=== PATIENT | female | born 1990 | race Caucasian/White ===

== ENCOUNTER 2024-06-01 02:54 | Inpatient (IN) | payer BC, SELFPAY ==
[2024-06-01] VITALS (96 sets, daily range): BP systolic 90–159; BP diastolic 50–91; PULSE 59–111; RESP 16–20; TEMP 36.5–37.5; O2SAT 98–100; BMI 29.0
[2024-06-01 02:42] LABS: Amnisure Rom* POSITIVE
[2024-06-01] MEDS: ACETAMINOPHEN 500 MG TABLET 1000 MG PO ×3 (04:39→19:17)
[2024-06-01] MEDS: ONDANSETRON ODT 4 MG TAB PO (04:42)
[2024-06-01] MEDS: LACTATED RINGERS 1000 ML 1,000 ML 1100 ML IV (05:15)
[2024-06-01 05:26] LABS: Basophils Absolute Auto 0.03 K/uL (0.00-0.30); Basophils Percent Auto 0.3 % (0.0-3.0); Eosinophils Absolute Auto 0.14 K/uL (0.00-0.50); Eosinophils Percent Auto 1.4 % (0.0-7.0); Hematocrit* 36.3 % (33.0-51.0); Hemoglobin* 12.5 gm/dL (12.0-16.0); Immature Granulocytes Abs Auto 0.04 K/uL (0.00-0.30); Immature Granulocytes Pct Auto 0.4 %; Lymphocytes Percent Auto 17.9 % (20-44); Mean Corpuscular HGB Conc 34 gm/dL (32-36); Mean Corpuscular Hemoglobin 32 pg (26-34); Mean Corpuscular Volume 93 fL (80-100); Monocytes Percent Auto 6.7 % (0.0-11.0); Neutrophils Percent Auto 73.3 % (42.0-72.0); Platelet Count* 144 K/uL (140-440); RDW Coefficient of Variation % 12.9 % (11.5-15.5); Red Blood Count* 3.89 m/uL (4.00-5.20); White Blood Count* 10.33 K/uL (4.50-11.00)
[2024-06-01 05:30] LABS: Slide Review Reflex No
[2024-06-01] MEDS: BUPIVACAINE 0.25% PF 10 ML 10 ML ML EPIDURAL (05:42)
[2024-06-01] MEDS: ROPIVACAINE 0.2% 100 ml 100 ML 12 MG EPIDURAL (05:43)
--- NOTE | 2024-06-01 05:53 | PM.ANBPRC ---
PFSH PFS Social History Smoking Status: Never smoker Meds Home Medications and Allergies Allergies Allergy/AdvReac Type Severity Reaction Status Date / Time No Known Drug Allergies Allergy Verified 06/01/24 01:59 Results Labs Labs: Laboratory Results - last 24 hr 06/01/24 06/01/24 01:58 05:20 WBC 10.33 RBC 3.89 L Hgb 12.5 Hct 36.3 MCV 93 MCH 32 MCHC 34 RDW Coeff of Tracey 12.9 Plt Count 144 Neut % (Auto) 73.3 H Lymph % (Auto) 17.9 L Hartley % (Auto) 6.7 Eos % (Auto) 1.4 Baso % (Auto) 0.3 Neut # (Auto) 7.60 H Lymph # (Auto) 1.80 Hartley # (Auto) 0.70 Eos # (Auto) 0.14 Baso # (Auto) 0.03 Abs Immat Gran (auto) 0.04 Imm/Tot Granulo (auto) 0.4 Membrane Rupture POSITIVE Vital Signs Vital Signs: Last Vital Signs Temp 98 F 06/01/24 03:32 Pulse 68 06/01/24 05:51 Resp 16 06/01/24 02:03 BP 122/70 06/01/24 05:51 Pulse Ox 100 06/01/24 05:50 Anesthesia Procedures Epidural Insertion Patient Location: OB Start Time: 05:00 Stop Time: 05:50 Start Date: 06/01/24 Stop Date: 06/01/24 Reason for Block: procedure for pain Patient Position: sitting Performed By: Lex Mojica Preanesthetic Checklist: IV checked, risks and benefits discussed, surgical consent, monitors and equipment checked, pre-op evaluation, timeout performed and anesthesia consent Prep: chlorhexidine gluconate Monitoring: blood pressure monitoring, continuous pulse oximetry and heart rate Approach: midline Vertebral Space: lumbar (1-5) Epidural Technique: BRENNAN saline Needle Type: Tuohy needle Injection Technique: continuous catheter Needle gauge: 17 Needle Length (cm): 10 cm Needle Insertion Depth (cm): 6 Catheter Gauge: 19 Catheter Type: multi-orifice Catheter at skin depth (cm): 12 Test Dose Result: negative and lidocaine 1.5% with epinephrine 1 to 200,000
[2024-06-01] MEDS: LACTATED RINGERS 1000 ML 1,000 ML 125 ML IV (06:13)
[2024-06-01 06:19] LABS: Alanine Aminotransferase* 65 U/L (4-35); Aspartate Amino Transferase* 53 U/L (12-35); Blood Urea Nitrogen* 12 mg/dL (5-24); Creatinine* 0.6 mg/dL (0.5-1.5); Estimated Glomerular Filt Rate 122 ml/min
[2024-06-01] MEDS: ONDANSETRON 2 MG/ML inj 4 MG IV (07:22)
--- NOTE | 2024-06-01 07:32 | PM.OBHPLI ---
OB - H&P: HPI Labor/Induction History of Present Illness Time Seen by Provider: 07:32 Date Seen: 06/01/24 Chief Complaint: The patient is a 34 year old 1 para 0 at 39+4 weeks gestation by LMP, who presents with SROM. Chief complaint: Maternity : 1 Para: 0 Narrative: Maggie Rehman is a 34 year old female at 39+4 weeks by LMP c/w 10 week US who presents with SROM. She reports a gush of clear fluid at home around 0000, contractions started at 0100. Presented to L&D 0230, found to be 2.5/80/-3, zoran regularly. Contractions became more intense around 0430. Patient requested epidural, placed 0530. Now feeling nauseous, otherwise comfortable. 8/100/0 at 0715. Blood pressures elevated to max of 159/90 upon presentation. Have since been variable, currently 108/63 after epidural. Pre-E labs significant for AST 53, ALT 65. Pr/Cr pending. LE edema; no ESPINOZA, visual change or RUQ pain. complicated by R anterior mid-uterine fibroid, 9 cm at 36 week US. EFW 54th percentile. History of Present Dating criteria: based on LMP care: good care Abnormal ultrasound findings: - 10 week dating US c/w LMP - 20 week survey normal, EFW 49th percentile, R uterine fibroid 7 cm - 32 week growth EFW 14th percentile, R uterine fibroid 9 cm - 36 week growth EFW 54the percentile, R uterine fibroid 9 cm complications: gestational hypertension (New diagnosis in labor) Medical complications: none Labs Blood type: AB (+) positive Rubella: immune RPR/VDLR: nonreactive GBS status: negative HBsAG: negative Narrative: HIV neg GC/chlam neg GCT 117 Review of Systems Status of ROS: Reports: 10 or more systems reviewed and unremarkable except as noted in History and below Meds Home Medications and Allergies Home Medications ?Medication ?Instructions ?Recorded ?Confirmed ?Type No Known Home Medications 06/01/24 06/01/24 History Allergies Allergy/AdvReac Type Severity Reaction Status Date / Time No Known Drug Allergies Allergy Verified 06/01/24 01:59 OB - H&P: Exam Physical Exam: Vital signs: Temp Pulse Resp BP Pulse Ox 97.7 F 68 16 107/57 L 99 04/04/25 07:26 06/01/24 07:21 06/01/24 07:26 06/01/24 07:21 06/01/24 06:10 Narrative: General appearance: Well-appearing adult female. Alert, oriented and appropriate. Sitting up in hospital bed. HEENT: EOMI, no conjunctival injection or discharge. MMM. Neck: Supple. CV: RRR, no rubs, murmurs or extra heart sounds. Pulm: CTAB, no wheezes, rales or rhonchi. Abdomen: Soft, gravid. MSK: Moving all extremities. Ext: Warm and well-perfused. 1+ edema over the dorsal feet, trace in ankles and lower extremities Skin: No rashes appreciated over exposed skin. Neuro: Grossly normal strength and sensation. No focal deficits. Psych: Normal affect. 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 SROM at 0000 on 06/01 for clear fluid. GBS negative. Status: Acute Plan: - Epidural in place for pain control, patient confortable - GBS negative - FHT reassuring, category II - Expectant management (2) SROM (spontaneous rupture of membranes): Status: Acute (3) Gestational hypertension: Problem details: Elevated BPs upon presentation to L&D, non-severe range, 4 hours apart. LFTs elevated, not >2x ULN Status: Acute Plan: - Pr/Cr ratio pending - Continue to monitor blood pressures per protocol - Repeat labs in 6 hours - If meeting criteria for severe features, initiate IV mag (4) Uterine fibroid during , antepartum: Problem details: Mid right uterine fibroid measuring 9.1 x 8.9 x 3.1 cm at 36 weeks Status: Acute
[2024-06-01] MEDS: CALCIUM CARBONATE 500 MG CHEW PO (08:56)
[2024-06-01 08:57] LABS: Total Protein Urine 26 mg/dL
[2024-06-01] MEDS: PHENYLEPHRINE 100 MCG/ML SYRINGE IVP ×2 (08:57→10:12)
[2024-06-01 08:58] LABS: Protein Creatinine Ratio Urine 0.29 (0-0.19)
[2024-06-01] MEDS: OXYTOCIN 30 unit/500 ML in NS 30 UNIT/500 ML BAG IVPB (09:53)
--- NOTE | 2024-06-01 10:01 | PM.OBPNL ---
Subjective Time Seen by Provider: 10:01 Date Seen: 06/01/24 Narrative: Patient nauseated, but otherwise comfortable with epidural. tracing was showing occasional lates and variables, now resolved following a dose of phenylephrine. Variability also improved. Cervical exam remained 8/100/0 at 0915, so IUPC was placed. Not reading well, and IUPC was replaced. Objective Vital Signs: Last Vital Signs Temp 98.8 F 06/01/24 08:13 Pulse 86 06/01/24 09:48 Resp 16 06/01/24 07:26 BP 100/57 L 06/01/24 09:48 Pulse Ox 99 06/01/24 06:10 Pelvic Exam Dilation (cm): 8 Effacement (%): 100 Station: 0 Contractions Monitor mode: Internal Contraction Frequency: 3-4 mins Assessment Assessment: active labor Station: 0 Amniotic Membrane Status: SROM Status: Category ll Heart Rate Baseline: 140 Prison Variability: Moderate (6-25) Monitor Accelerations: Present Monitor Decelerations: Variable Plan Plan: - IUPC now in place, functioning well - Contractions appear inadequate. Pitocin started, will titrate as needed - FHT category II, decels improved following phenylephrine - Anticipate vaginal delivery
--- NOTE | 2024-06-01 11:33 | PM.OBPNL ---
Subjective Time Seen by Provider: 11:33 Date Seen: 06/01/24 Narrative: Intermittent late and variable decelerations recurred, again improved with phenylephrine at 1012. Patient found to be complete/100/+2 at 1100. Began pushing with good maternal effort. 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
[2024-06-01] MEDS: LIDOCAINE 1 % PF 30 ML INJECTION (14:06)
[2024-06-01] MEDS: ROPIVACAINE 0.2% 100 ml 100 ML 10 MG EPIDURAL (14:08)
--- NOTE | 2024-06-01 14:53 | W.PM.VAGDE_ITS ---
OB Procedure Vag Delivery Mother Details Mother Details: The patient is a 34 year-old, 1, Para 0, admitted on 06/01/24 at 39+4 Days gestation for SROM at home for clear fluid, large gush at 0000. Contractions started 0100. Patient arrived at the center 0230, found to be 2.5/80/-3. Multiple elevated blood pressures in the non-severe range, meeting criteria for gestational hypertension. LFTs elevated, not >2x ULN. Contractions became more intense; patient requested epidural for pain control with good effect. Periods of intermittent late and variable decelerations improved with phenylephrine. Found to be 8 cm after epidural 0615. 0915 remained 8 cm and IUPC was placed. Contractions inadequate, and IV pitocin initiated. She progressed to complete at 1102. Began pushing 1106. Delivered a viable male infant over an intact perineum at 1357. was placed on maternal chest. Cord was clamped at cut after 1 minute. APGARs 8 and 9. Placenta delivered spontaneously at 1402. Third degree perineal laceration was repaired by OB nutrition director, Dr. Garnica; see her note for repair details. QBL 740. and mother are resting comfortably. : 1 Para: 0 Weeks Gestation: 39.4 Admission Date: 06/01/24 Additional Details Amniotic Membrane Status: SROM Amniotic Membrane Rupture Date: 06/01/24 Amniotic Membrane Rupture Time: 00:00 Amniotic Membrane Fluid Description: Clear Analgesia/Anesthesia Type: Epidural Waterbirth: No Pitcoin: Yes Intrapartal Events: Labor Augmentation Delivery augmentation: pitocin Labor Onset: 04:30 Complete: 11:02 Pushin:06 Heart: heart tones during second stage were category II. Variable decelerations with pushing, rapid recovery back to baseline. Delivery Details Delivery Date: 06/01/24 Delivery Time: 13:57 Route of delivery: Gender: Male Infant Viability: Alive; Heart Rate Present Position at Delivery: OA Delivery Details: Delivered via spontaneous vaginal delivery. Infant was placed on maternal abdomen.? Cord was clamped and cut after a 30-60 second delay. Nose and mouth were bulb suctioned.? weight pending. 1 Minute Interval Total Score: 8 5 Minute Interval Total Score: 9 Additional Details Shoulder Dystocia: No Placenta Delivery Time: 14:02 Placental Delivery Description: Spontaneous Delivery repair: Vicryl Procedure Done: Global Blood Loss: 740 Laceration: Periurethral - 3rd Degree (Repaired by OB nutrition director, Dr. Garnica) Episiotomy Description: None Blood Loss Measurement Type: QBL Bakri Used: No Sponge/Need Count Correct: Yes Cord Vessel Description: 3 Vessels Event Summary Status: Mother and infant were stable after delivery. Disposition: floor
[2024-06-01] MEDS: IBUPROFEN 600 MG TABLET PO ×2 (15:05→21:02)
--- NOTE | 2024-06-01 15:08 | P.OBCN_ITS ---
OB - CN: HPI Date of Consult Time Seen by Provider: 15:00 Date Seen: 06/02/24 Patient: Audrey Patient Consult date: 06/02/24 Requesting Physician: Татьяна Quiroz DO Primary Care Provider: Jarvis Saunders MD Consult Narrative Narrative: The patient is a 34 year old G 1 now P1 at 39.4 weeks gestation that was admitted to the Center on 06/01/24 for SROM. She had a . Perineum inspected and a 3B laceration was noted. The patient was given a dose of 2g of cefoxitin, rectal exam performed to confirm tear and internal anal sphincter identified and intact with >50% avulsion of the external anal sphincter. Operators? gloves changed and attention was then turned to the anal sphincter. Sandy clamps were placed on the disrupted edges, and 0 vicryl used to reapproximate the sphincter in an interrupted fashion with four stitches. Before these were tied down a rectal exam confirmed no retained sutures in the rectum and good sphincter tone with tightening of the sutures. Additional deep stitches were placed proximal to the sphincter to provide for a more substantial perineal body. The remainder of the tear was repaired as a typical 2nd degree laceration with a running 2-0 vicryl stitch. There was no involvement of the anal mucosa. The skin was closed with 3-0 vicryl. A rectal exam was performed at the beginning and end of repair and was without e/o suture through rectum or sphincter injury. Following the repair, she was counseled on the procedure and precautions for return to care. Strong bowel regimen instructions reviewed. Baby inspected. Mom and baby doing well in recovery. QBL: 400 cc prior to repair. 740 cc total Postoperative care recommendations - Bowel regimen: Miralax QD, Senna BID, Simethicone Q4H PRN. Continue bowel regimen for 6-8 weeks depending on level of constipation. Avoid straining, constipation or diarrhea. Avoid sitting on the toilet for more than 10 mins. - Wound care: recommend rinsing with warm water using carlos-care bottle and wiping with unscented wet wipes/clean towel after voids and bowel movements. Pat clean and dry. Do not rub. Avoid using toilet paper that can break off and stick to wound. - Pain: 600mg of Ibuprofen Q6H PRN, 1000 mg of acetaminophen Q6H PRN, oxycodone 5 mg Q6H PRN, Dermo Plast spray PRN, perineal ice pack PRN. Sitz baths BID x 2 weeks, then PRN. History of Present complications: gestational hypertension (New diagnosis in labor) History History 1 Elective abortions Para 0 Spontaneous abortions Hx # Term Pregnancies Ectopic pregnancies Hx # Pregnancies Multiple births Number of Living Children 0 Labs Blood type: AB (+) positive Rubella: immune RPR/VDLR: nonreactive GBS status: negative HBsAG: negative OB Labs: Lab Assessment Start: 06/01/24 02:55 Freq: ONCE Status: Complete Protocol: PC.OBGBS Activity Type Activity Date Activity User E-sign Co-sign Detail Recorded Client Recorded Date Recorded By Document 06/01/24 03:22 DESSELLBRYANM [id number] 06/01/24 03:22 DESSELLIEM 06/01/24 03:22 Lab Assessment GBS Status negative GBS Additional Criteria None No Treatment Needed OK Are Labs Available Yes Maternal Blood Type AB Maternal RH Factor Positive Evaluate Maternal Rubella Immune Status Immune Hepatitis B Surface Antigen Negative Maternal HIV Status Negative Maternal Syphillis (RPR) Status Negative PFSH PFSH Social History What is your current living situation?: I presently have a place to live Problems where you live: no known problems In the past 12 months, utilities in danger of being shut off: no In past 12 months, lack of transportation kept you from medical appts, meetings, work, or getting things needed for daily living: no In the past 12 mos, have been you worried that your food would run out before you had money to buy more?: never true In the past 12 mos, the food you bought just didn't last and you didn't have money to buy more?: never true Smoking Status: Never smoker How often does anyone, including family, friends and others, physically hurt you : never How often does anyone, including family, friends and others, insult or talk down to you: never How often does anyone, including family, friends and others, threaten you with harm: never How often does anyone, including family, friends and others, scream or curse at you: never Meds Home Medications and Allergies Home Medications ?Medication ?Instructions ?Recorded ?Confirmed ?Type No Known Home Medications 06/01/24 06/01/24 History Allergies Allergy/AdvReac Type Severity Reaction Status Date / Time No Known Drug Allergies Allergy Verified 06/01/24 01:59 OB - H&P: Exam Physical Exam: Vital signs: Temp Pulse Resp BP Pulse Ox 98.4 F 82 20 113/69 99 06/01/24 13:17 06/01/24 15:03 06/01/24 13:17 06/01/24 15:03 06/01/24 06:10 OB - Results Labs Labs: Short CBC 06/01/24 Range/Units 05:20 WBC 10.33 (4.50-11.00) K/uL Hgb 12.5 (12.0-16.0) gm/dL Hct 36.3 (33.0-51.0) % Plt Count 144 (140-440) K/uL BMP 06/01/24 05:20 BUN 12 Creatinine 0.6 Liver Function 06/01/24 Range/Units 05:20 AST 53 H (12-35) U/L ALT 65 H (4-35) U/L OB - CN: A/P Assessment and Plan (1) Term : Problem details: at 39+4 weeks. SROM at 0000 on 06/01 for clear fluid. GBS negative. Status: Acute (2) SROM (spontaneous rupture of membranes): Status: Acute (3) Gestational hypertension: Problem details: Elevated BPs upon presentation to L&D, non-severe range, 4 hours apart. LFTs elevated, not >2x ULN Status: Acute (4) Uterine fibroid during , antepartum: Problem details: Mid right uterine fibroid measuring 9.1 x 8.9 x 3.1 cm at 36 weeks Status: Acute
[2024-06-01] MEDS: cefOXitin 2 GM in 0.9 % SODIUM CHLORIDE Mini-bag 100 ML IVPB (15:19)
[2024-06-01 16:14] LABS: Hematocrit* 32.2 % (33.0-51.0); Hemoglobin* 10.9 gm/dL (12.0-16.0); Mean Corpuscular HGB Conc 34 gm/dL (32-36); Mean Corpuscular Hemoglobin 32 pg (26-34); Mean Corpuscular Volume 94 fL (80-100); Platelet Count* 127 K/uL (140-440); Red Blood Count* 3.41 m/uL (4.00-5.20); White Blood Count* 15.99 K/uL (4.50-11.00)
[2024-06-01 16:26] LABS: Slide Review Reflex No
[2024-06-01 16:29] LABS: Alanine Aminotransferase* 52 U/L (4-35); Aspartate Amino Transferase* 47 U/L (12-35); Blood Urea Nitrogen* 10 mg/dL (5-24); Creatinine* 0.6 mg/dL (0.5-1.5); Estimated Glomerular Filt Rate 122 ml/min
[2024-06-01] MEDS: SENNOSIDES 1 TAB TABLET PO (21:02)
[2024-06-02 00:19] VITALS: BP 121/71; PULSE 86; RESP 18; TEMP 36.6
[2024-06-02] MEDS: ACETAMINOPHEN 500 MG TABLET 1000 MG PO ×3 (03:15→19:27)
[2024-06-02 03:41] VITALS: BP 120/79; PULSE 76; RESP 22; TEMP 36.8
[2024-06-02] MEDS: IBUPROFEN 600 MG TABLET PO ×3 (06:03→20:47)
[2024-06-02 07:38] LABS: Hemoglobin* 10.2 gm/dL (12.0-16.0); Platelet Count* 119 K/uL (140-440)
[2024-06-02 07:45] VITALS: BP 110/72; PULSE 85; RESP 18; TEMP 36.4; O2SAT 99
[2024-06-02] MEDS: DOCUSATE SODIUM 100 MG CAPSULE PO (08:56)
[2024-06-02] MEDS: SENNOSIDES 1 TAB TABLET PO ×2 (08:56→20:47)
[2024-06-02] MEDS: polyethylene glycoL 3350 17 GM PACK PO (08:57)
[2024-06-02] MEDS: CALCIUM CARBONATE 500 MG CHEW PO (08:57)
--- NOTE | 2024-06-02 10:16 | PM.OBPNVD1 ---
OB - PN:Subj Subjective Date Seen: 06/02/24 Interval history: Vaginal delivery with 3rd degree repair yesterday. Narrative: Doing pretty well . Pain and bleeding are improving. Still having some mild substernal burning with eating and drinking or when she lays down flat. Not with activity or deep breath. Not having headaches or RUQ pain. BP has been normal. Leg swelling is stable. OB - PN: Obj Exam Physical Exam: Vital signs: Temp Pulse Resp BP Pulse Ox O2 Del Method 97.5 F L 85 18 110/72 99 Room Air 06/02/24 07:45 06/02/24 07:45 06/02/24 07:45 06/02/24 07:45 06/02/24 07:45 06/02/24 07:45 Constitutional: Constitutional: no acute distress Routine Chest/Breast/Axilla Exam: Chest wall: Absent tenderness Detailed Chest Wall Exam: Chest wall: Absent crepitus or rib tenderness Routine Respiratory Exam: Respiratory: Present CTA bilaterally; Absent crackles or wheezes Routine Cardiovascular Exam: Cardiovascular: Present RRR, S1 and S2; Absent murmur Routine Abdominal Exam: Abdominal: Absent tenderness Fundus: Present firm Routine Extremities Exam: Extremities: Present pedal edema (1+ nonpitting edema bilaterally); Absent calf tenderness OB - PN: Obj Data Labs Labs: Laboratory Results - last 24 hr 06/01/24 06/02/24 15:46 07:19 WBC 15.99 H RBC 3.41 L Hgb 10.9 L 10.2 L Hct 32.2 L MCV 94 MCH 32 MCHC 34 Plt Count 127 L 119 L BUN 10 Creatinine 0.6 Estimated GFR 122 AST 47 H ALT 52 H OB - PN: A/P Delivery Assessment and Plan (1) Term : Problem details: at 39+4 weeks. SROM at 0000 on 06/01 for clear fluid. GBS negative. Status: Acute Assessment and Plan: Routine cares (2) SROM (spontaneous rupture of membranes): Status: Acute (3) Gestational hypertension: Problem details: Elevated BPs upon presentation to L&D, non-severe range, 4 hours apart. LFTs elevated, not >2x ULN Status: Acute Assessment and Plan: Labs yesterday showed liver enzyme trending down. Platelets down minimally this morning from yesterday but no other symptoms. Bleeding improving. Swelling improving as well. If BP elevated today, will repeat labs. (4) Uterine fibroid during , antepartum: Problem details: Mid right uterine fibroid measuring 9.1 x 8.9 x 3.1 cm at 36 weeks Status: Acute (5) Acid reflux: Status: Acute Assessment and Plan: Not improved with tums. Will trial famotidine. Monitor for worsening or changing symptoms. (6) Third degree perineal laceration: Status: Acute Assessment and Plan: Pain improving. Continue bowel regimen.
[2024-06-02] MEDS: MAG HYDROX/ALUMINUM HYD/SIMETH 30 ML ORAL.SUSP PO (10:26)
[2024-06-02 11:40] VITALS: BP 121/76; PULSE 73; RESP 18; TEMP 36.4; O2SAT 100
[2024-06-02 14:43] LABS: Rapid Plasma Reagin (RPR) Non Reactive (Non Reactive)
[2024-06-02 19:30] VITALS: BP 112/74; PULSE 73; RESP 18; TEMP 36.8
[2024-06-03] MEDS: ACETAMINOPHEN 500 MG TABLET 1000 MG PO ×2 (00:42→06:51)
[2024-06-03 00:44] VITALS: BP 112/73; PULSE 73; RESP 20
[2024-06-03] MEDS: IBUPROFEN 600 MG TABLET PO ×2 (02:29→08:33)
[2024-06-03 03:54] VITALS: BP 129/81; PULSE 73; RESP 20; TEMP 36.4; O2SAT 100
[2024-06-03 06:53] VITALS: BP 121/80
[2024-06-03 08:24] VITALS: BP 116/78; PULSE 73; RESP 18; TEMP 36.6; O2SAT 99
[2024-06-03] MEDS: DOCUSATE SODIUM 100 MG CAPSULE PO (08:33)
[2024-06-03] MEDS: SENNOSIDES 1 TAB TABLET PO (08:33)
[2024-06-03] MEDS: polyethylene glycoL 3350 17 GM PACK PO (08:33)
[2024-06-03] MEDS: MAG HYDROX/ALUMINUM HYD/SIMETH 30 ML ORAL.SUSP PO (09:12)
[2024-06-03 09:16] LABS: Hematocrit* 29.6 % (33.0-51.0); Hemoglobin* 9.8 gm/dL (12.0-16.0); Mean Corpuscular HGB Conc 33 gm/dL (32-36); Mean Corpuscular Hemoglobin 33 pg (26-34); Mean Corpuscular Volume 98 fL (80-100); Platelet Count* 126 K/uL (140-440); Red Blood Count* 3.02 m/uL (4.00-5.20)
[2024-06-03] MEDS: OMEPRAZOLE 20 MG CAPSULE DR PO (09:27)
[2024-06-03 09:30] LABS: Slide Review Reflex No
[2024-06-03 09:36] LABS: Alanine Aminotransferase* 54 U/L (4-35); Aspartate Amino Transferase* 54 U/L (12-35); Creatinine* 0.7 mg/dL (0.5-1.5); Est. Creatinine Clearance* 116.39; Estimated Glomerular Filt Rate 118 ml/min
--- NOTE | 2024-06-03 09:44 | P.DS_ITS ---
DS: Providers Provider Date Seen: 06/03/24 Date of admission: 06/01/24 02:54 Primary care physician: Jarvis Saunders MD Admitting Clinician: Татьяна Quiroz DO Attending Physician on discharge: Mann Barton MD Date of Discharge: 06/03/24 DS: Diagnosis Discharge Diagnosis (1) Third degree perineal laceration: Status: Acute Problem details: Continue bowel regimen. No intercourse or tampons for at least 6 weeks. (2) Acid reflux: Status: Acute Problem details: Will do omeprazole daily and follow as outpatient. (3) Gestational hypertension: Status: Acute Problem details: Elevated BPs upon presentation to L&D, non-severe range, 4 hours apart. LFTs elevated, not >2x ULN. Monitor home BP. Goal < 140/90. (4) Vaginal delivery: Status: Acute Problem details: Continue ibuprofen and tylenol as needed. Exam Const: Vital Signs, click to edit/add: Vital Signs - 24 hr 06/02/24 11:40 06/02/24 19:30 06/03/24 00:44 Temperature 97.6 F 98.2 F Pulse Rate [Pulse Oximeter] 73 73 73 Respiratory Rate 18 18 20 Blood Pressure [Le ft Arm] 121/76 112/74 112/73 Pulse Oximetry 100 Oxygen Delivery Me thod Room Air Room Air 06/03/24 03:54 06/03/24 06:53 06/03/24 08:24 Temperature 97.5 F L 97.8 F Pulse Rate [Pulse Oximeter] 73 73 Respiratory Rate 20 18 Blood Pressure [Le ft Arm] 129/81 121/80 116/78 Pulse Oximetry 100 99 Oxygen Delivery Me thod Room Air Room Air Documenting provider has reviewed patient's vital signs: yes Common normals: no apparent distress HENMT: Common normals: head/scalp atraumatic Head and scalp: atraumatic Neck & C-Spine: Common normals: full ROM Chest: Common normals: palpation of chest normal Resp: Common normals: normal respiratory effort, no retractions, no use of accessory muscles and clear to auscultation bilaterally Auscultation: clear to auscultation bilaterally Cardio: Common normals: regular rate, regular rhythm and no murmurs Rate: regular rate Rhythm: regular rhythm GI: Common normals: Normal to inspection, nondistended, normoactive bowel sounds present, soft to palpation, non-tender and no hepatosplenomegaly Palpation: soft and no hepatosplenomegaly : Uterus: U/2 and firm Lochia: small Extremity: General: edema (1+ nonpitting edema bilaterally) Skin: Common normals: no rashes or lesions noted General skin exam: no rashes or lesions noted OB - DS: Summary Hospital Course Hospital Course: The patient is a 34 year old G 1 P 1 at 39 weeks gestation that was admitted to the Center on 06/01/24 for SROM. She had an uncomplicated vaginal delivery. She delivered a viable male . She is breast feeding. 1. Gestational hypertension She did have some higher blood pressures in labor but these did not continue . Preeclampsia labs were normal except mildly elevated liver enzymes (<2x ULN). These were trended during her stay and found to be still mildly elevated at discharge without significant change from admission. Platelets mildly low but stable at discharge as well. No RUQ pain during her stay. Mild headache off and on similar to prior. Improved with ibuprofen and tylenol. No vision changes. Will be discharged home with BP cuff. 2. Reflux She had occasional substernal pain only with eating during her stay. Tums and Maalox helped some but did not resolve it. Famotidine didn't help. Given omeprazole prior to discharge and recommended to stay on for at least one week. 3. 3rd degree perineal laceration Repaired after delivery. On bowel regimen. Routine follow up cares discussed. Bl eeding and pain improving at discharge. Peripartum Data Infant delivery method: Vaginal Laceration description: Perineal - 3rd Degree [place] Gender: Male Time Spent with Patient Time attestation: Total time spent providing and/or coordinating discharge services: Discharge Plan Discharge Disposition: Home, Self-Care Date of Admission: 06/01/24 02:54 Primary Care Provider: Jarvis Saunders Condition: Improved Anticipated Discharge Date/Time: 06/03/24 10:06 Discharge Medications: New polyethylene glycol 3350 [Miralax] 17 gram Powder In Packet 17 g PO DAILY Qty: 30 0RF omeprazole 20 mg capsule,delayed release(DR/EC) 20 mg PO DAILY Qty: 30 2RF sennosides [Senna Lax] 8.6 mg Tablet 8.6 mg PO BID Qty: 60 0RF No Action No Known Home Medications Discharge Orders: Discharge Order (Routine); Ordered 06/03/24 Ordered By: Mann Barton Patient Education: OB High Blood Pressure DC, OB Vaginal/Breast Feeding Activity Level: No strenuous activity Discharge Diet: Regular Follow Up Appointments: Jarvis Saunders MD [Primary Care Provider] - Forms: [employer] Info Instructions Discharge Comments: 6 week follow up appointment with Dr. Duong
--- NOTE | 2024-06-03 12:13 | PM.ANPOST ---
Post Anesthesia Note Post Anesthesia Note Patient seen: Inpatient Respiratory Status: adequate Cardiovascular Status: adequate Mental Status: baseline Pain: adequate Temp: baseline Anesthetic awareness: N/A Complications: none Follow care: none
== END 2024-06-03 12:46 | disposition home or self-care (01) | DRG 560 ==
LOC: OB OUT 02:55 → OB 02:55
PROVIDERS: Surgery; Admitting Provider Family Medicine; PCP Family Medicine; Visit Provider Family Medicine
DX: O42.02 Full-term premature rupture of membranes, onset of labor within 24 hours of rupture (principal); Z3A.39 39 weeks gestation of pregnancy; Z37.0 Single live birth; O13.4 Gestational [pregnancy-induced] hypertension without significant proteinuria, complicating childbirth; O70.22 Third degree perineal laceration during delivery, IIIb; O76 Abnormality in fetal heart rate and rhythm complicating labor and delivery; O34.13 Maternal care for benign tumor of corpus uteri, third trimester; D25.9 Leiomyoma of uterus, unspecified; O99.62 Diseases of the digestive system complicating childbirth; K21.9 Gastro-esophageal reflux disease without esophagitis
CPT/HCPCS: 01967; 36415; 82565; 82570; 84112; 84156; 84450; 84460; 84520; 85018; 85025; 85027; 85049; 86592; 86850; 86900; 86901; 94761; A9270; J0665; J0694; J2003; J2371; J2405; J2795; J7120

== ENCOUNTER 2024-06-06 13:52 | Inpatient (IN) | payer BC, SELFPAY ==
[2024-06-06] VITALS (11 sets, daily range): BP systolic 117–150; BP diastolic 75–91; PULSE 54–87; RESP 16–20; TEMP 36.3–37; O2SAT 97–100
--- OUTSIDE RECORDS SUMMARY | 2024-06-06 13:56 | XMS_ITS | Clinical Summary ---
Author Organization [facility] Address [address] [place] [id number] Care Team Providers Care Binding Machine Operator Name Role Phone Jarvis Saunders MD Primary Care Provider Mikayla Duong MD Unavailable [phone] Allergies No known active allergies Medications vit 28/iron fum/folic (multivitamin folic acid 1 mg)Indications:E ncounter for supervision of normal first in first trimester (HC) Take 1 Tablet by mouth once daily. 4 Active durable medical equipment (DME)Indications :Care and examination of lactating mother (HC) Double electric breast pump. 1 Each 5 Active omeprazole 20 mg Delayed-Release capsuleIndicatio ns:Gastric reflux Take 1 Capsule (20 mg) by mouth once daily before a meal. 30 Capsule 5 Active Active Problems Problem Noted Date Diagnosed Date 10/21/2023 Overview (03/21/2024): Estimated Date of Delivery: 06/04/24 Patient's last menstrual period was 08/29/2023 (exact date). 7cm fibroid GBS: 28wk labs: GLUCOSE, GESTATIONAL SCREEN (50G)-140 CUTOFF Date Value Ref Range Status 02/16/2024 117 <140 mg/dL Final HEMOGLOBIN Date Value Ref Range Status 02/16/2024 12.0 11.7 - 15.5 g/dL Final TREPONEMA PALLIDUM Date Value Ref Range Status 02/16/2024 Non-Reactive Non-Reactive Final Last Tdap: 03/12/24 Last Flu vaccine: 02/16/24 OB Labs: ABORH Date Value Ref Range Status 10/21/2023 AB Rh Positive Final ANTIBODY SCREEN Date Value Ref Range Status 10/21/2023 Negative Negative Final TREPONEMA PALLIDUM Date Value Ref Range Status 02/16/2024 Non-Reactive Non-Reactive Final HBSAG Date Value Ref Range Status 10/21/2023 Nonreactive Nonreactive Final HEPATITIS C ANTIBODY Date Value Ref Range Status 10/21/2023 Non-Reactive Non-Reactive Final Comment: Please note, per www.CDC.gov: If a patient is known to be at high risk of HCV infection, or is symptomatic, and the physician's suspicion of HCV infection is high, HCV RNA testing is often employed and is of diagnostic value, even after an initial negative anti-HCV test result. HIV-1/HIV-2 SCREEN Date Value Ref Range Status 10/21/2023 Non-Reactive Non-Reactive Final Comment: HIV-1 p24 and HIV-1/HIV-2 Ab Not Detected. HEMOGLOBIN Date Value Ref Range Status 10/21/2023 12.5 12.0 - 16.0 g/dL Final HEMOGLOBIN Date Value Ref Range Status 02/16/2024 12.0 11.7 - 15.5 g/dL Final PLATELET COUNT Date Value Ref Range Status 10/21/2023 177 140 - 440 thou/cu mm Final CHLAMYDIA PROBE Date Value Ref Range Status 10/21/2023 Negative Final N GONORRHOEAE PROBE Date Value Ref Range Status 10/21/2023 Negative Final No Known Allergies OB History Para Term AB Living 1 0 0 0 0 0 SAB IAB Ectopic Multiple Live Births 0 0 0 0 0 # Outcome Date GA Lbr Sai/2nd Weight Sex Type Anes PTL Lv 1 Current Past Medical History: . Date Migraine headache No Significant Past Medical History Pap smear for cervical cancer screening 06/29/2021 Plan: Pap and HPV 06/2024 Past Surgical History: . Laterality Date CLOSED REDUCTION CLAVICLE FRACTURE Problems (from 10/21/23 to present) No problems associated with this episode. Clementine B Kapaun, RN ....10/21/2023 1:32 PM Seasonal allergies 12/30/2022 Pap smear for cervical cancer screening 06/30/19 22 Overview (08/03/2021): Plan: Pap and HPV 06/2024 Idiopathic scoliosis of thoracolumbar spine 01/29 Estimated Date of Delivery Comme nts Yes 06/04/2024 Based on last me nstrual period of 08/29/2023 (Exact Date) Encounters Date Type Department Care Team Description 06/06/2024 Nurse Triage [facility] [address] [place] [address] Jarvis Saunders MD Care; High Blood Pressure; Headache 06/04/2024 10:00 AM CDT Office Visit [facility] [address] [place] [address] Mikayla Duong MD Follow Up (/BP check) 06/04/2024 Telephone [facility] [address] [place] [address] Jarvis Saunders MD Refill Request (omeprazole) 06/04/2024 Travel 06/03/2024 Orders Only [facility] Scanner 1 scan: (1-Ord) [facility], MULTIPLE LAB RESULTS, 06/03/2024 06/03/2024 Orders Only [facility] Scanner 1 scan: (1-Ord) [facility], MULTIPLE LAB RESULTS, 06/03/2024 06/02/2024 Orders Only [facility] Scanner 1 scan: (1-Ord) [facility], HGB LABS, 06/02/2024 06/01/2024 Orders Only [facility] Scanner 1 scan: (1-Ord) [place], RAPID PLASMA REAGIN, 06/01/2024 06/01/2024 Orders Only [facility] Scanner 1 scan: (1-Ord) [facility], MULTIPLE LABS, 06/01/2024 06/01/2024 Orders Only [facility] Scanner 1 scan: (1-Ord) [facility], MULTIPLE LABS, 06/01/2024 06/01/2024 Orders Only [facility] Scanner 1 scan: (1-Ord) [facility], MULTIPLE LABS, 06/01/2024 06/01/2024 Orders Only [facility] Scanner 1 scan: (1-Ord) [facility], OB PROCEDURE VAG DELIVERY, 06/01/2024 06/01/2024 Orders Only [facility] Scanner 1 scan: (1-Ord) [facility], URINE CREAT, 06/01/2024 06/01/2024 Orders Only [facility] Scanner 1 scan: (1-Ord) [facility], AMNISURE ROM, 06/01/2024 05/28/2024 10:00 AM CDT OB Encounter [facility] [address] [place] [address] Mikayla Duong MD Ultrasound; Care (39 weeks) 05/28/2024 Travel 05/21/2024 10:00 AM CDT OB Encounter [address] [place] [id number] Mikayla Duong MD Care (38weeks) 05/21/2024 Travel 05/16/2024 1:55 PM CDT OB Encounter [facility] [address] [place] [address] Mikayla Duong MD Care (37w 2 d); Leg Pain/problem (legs and left hip pain at night ); Edema 05/16/2024 Travel 05/07/2024 10:00 AM CDT OB Encounter [facility] [address] [place] [address] Mikayla Duong MD Care (36) 05/07/2024 9:00 AM CDT Ancillary Procedure [facility] [address] [facility] [place] [id number] 05/07/2024 Travel 04/23/2024 2:45 PM ELECTRICAL PROJECT ENGINEER OB Encounter [facility] [address] [place] [address] Mikayla Duong MD Care (34weeks) 04/23/2024 Travel 2024 Telephone [facility] [address] [place] [id number] Mikayla Duong MD Appointment Request (04/23/2024) 04/12/2024 11:15 AM ELECTRICAL PROJECT ENGINEER OB Encounter [facility] [address] [place] [place] [id number] Mikayla Duong MD Care (32+3) 04/12/2024 10:30 AM ELECTRICAL PROJECT ENGINEER Ancillary Procedure [facility] [address] [place] [id number] 04/12/2024 Travel 03/26/2024 1:05 PM ELECTRICAL PROJECT ENGINEER OB Encounter [facility] [address] [place] [place] [id number] Mikayla Duong MD Care (30 weeks) 03/26/2024 Travel 03/12/2024 1:05 PM ELECTRICAL PROJECT ENGINEER OB Encounter [facility] [address] [place] [id number] Mikayla Duong MD Care (28 weeks /) 03/12/2024 Travel from Last 3 Months Immunizations Immunization Administration Dates Next Due COVID-19 vaccine ([employer]-Bio NTech 30mcg/0.3mL) 12YO+ SHANON-SUCROSE PF, MDV 06/29/2021 DTP 09/19/1997, 4,1992,1992,1992 HIB PRP-OMP (PedvaxHIB) 1992,1992, HPV 9 (Gardasil 9) 08/25/2016,05/10/2016, 016 Hepatitis B (Peds) 07/30/1993,1992, 993 INFLUENZA, IIV3 PF (AGE >= 6 MO) 02/16/2024 Influenza, IIV3 (Age >=3 years) 02/18/2003,01/30 Influenza, IIV4 02/25/2016 MMR 09/19/1997,07/30/1993 Oral Polio Vaccine 09/19/1997, 4,1992,1992 Tdap 03/12/2024,02/25/2016,10/22/2004 Family History Medical History Relation Name Comments Hypertension Father Arthritis Maternal Grandfather Asthma Maternal Grandfather Dementia Maternal Grandfather Diabetes Maternal Grandfather Parkinsonism Maternal Grandfather Heart Disease Maternal Grandmother Skin cancer Maternal Grandmother Good Health Mother Cancer Paternal Grandmother Good Health Sister Relation Name Status Comments Father Alive Maternal Grandfather Alive Maternal Grandmother Alive Mother Alive Paternal Grandfather Paternal Grandmother Alive Sister Alive Social History Tobacco Use Types Packs/Day Years Used Date Smoking Tobacco: Never Smokeless Tobacco: Never Tobacco Cessation:Counseling Given: Yes Alcohol Use Standard Drinks/Week Comments Not Currently 0 (1 standard drink = 0.6 oz pur e alcohol) occassionnally PHQ-2 Answer Date Recorded PHQ-2 TOTAL SCORE 0 01/19/2024 Social Connections Answer Date Recorded Do you often feel lonely or isolated from those around you? 0 12/21/2023 Financial Resource Strain Answer Date R ecorded Difficulty of Paying Living Expenses 3 12/21/2023 Difficulty of Paying Living Expenses Not on file 12/21/2023 Food Insecurity Answer Date Recorded Do you worry your food will run out before you are able to buy more? 1 12/21/2023 Transportation Needs Answer Date Record ed Does lack of transportation keep you from medica l appointments? 1 12/21/2023 Does lack of transportation keep you from work, meetings or getting things that you need? 1 12/21/2023 Housing Stability Answer Date Recorded What is your housing situation today? 1 12/21/2023 Utilities Answer Date Recorded Do you have trouble paying f or utilities (for example, heat, electricity, water, phone)? 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 on file Not on file Not on file Obstetrics History Para Term AB IAB SAB Ectopic Multiple Livin g Live Births 1 Date Outcome GA Total Labor Labor/2nd/3rd Weight Sex Type Anes PTL Margot A1 A5 Name Clin Current Summary Episode Dates Number of Fetuses Estimated Date of Delivery 10/21/2023 - Present (06/06/2024) 1 06/04/2024 (set by Clementine Portillo RN on 10/21/2023 based on Last Menstrual Period on 08/29/2023 (Exact Date)) Dating Summary Based On ROSALIE GA Diff Last Menstrual Period on 08/29/2023 (Exact Date) 06/04/2024 Working Ultrasound on 11/07/2023 06/02/2024 +2d GA:10w2d Alternate ROSALIE Entry 06/04/2024 Same Vitals Pregravid Weight Height TWG (As of 06/06/2024) Pregrav id BMI 67.6 kg (149 lb) 1.745 m (5' 8.7) 17.2 kg (38 lb) 22. 20 Notes Progress Notes - Office Visi t - 06/04/2024 - GA:40w0d 06/04/2024 - 40w0d - Mikayla Duong MD SUBJECTIVE: Maggie Rehman is a 34 y.o. female who presents to discuss Follow Up (/BP check) . HPI 34-year-old G1, P1 who presents in follow-up after hospital discharge for vaginal delivery. on 06/01/2024. Third-degree perineal laceration. Diagnosed with gestational hypertension during the admission, did not meet criteria for preeclampsia. LFTs mildly elevated, did not reach 2 times upper limit of normal. Stable, but not decreasing at the time of discharge. Also had mild thrombocytopenia. She was instructed to check blood pressures at home after discharge. She was prescribed a bowel regimen including MiraLAX and senna twice daily to keep stools soft and easily passed. Blood pressure is normal today. Values at home have been similar, 120s over 70s to 80s. Experience some headache yesterday, but this is now resolved. No visual change or right upper quadrant pain. Her lower legs and feet are swollen, no significant improvement since discharge. Bottom is sore, but manageable with Tylenol and ibuprofen. She has not been taking oxycodone. Bleeding is less than a normal period. Feels like her milk is in today. Dad remains at home for support. ROS Review of Systems is included in the HPI. Patient Active Problem List Diagnosis Date Noted (HC) 10/21/2023 Estimated Date of Delivery: 06/04/24 Patient's last menstrual period was 08/29/2023 (exact date). 7cm fibroid GBS: 28wk labs: GLUCOSE, GESTATIONAL SCREEN (50G)-140 CUTOFF Date Value Ref Range Status 02/16/2024 117 <140 mg/dL Final HEMOGLOBIN Date Value Ref Range Status 02/16/2024 12.0 11.7 - 15.5 g/dL Final TREPONEMA PALLIDUM Date Value Ref Range Status 02/16/2024 Non-Reactive Non-Reactive Final Last Tdap: 03/12/24 Last Flu vaccine: 02/16/24 OB Labs: ABORH Date Value Ref Range Status 10/21/2023 AB Rh Positive Final ANTIBODY SCREEN Date Value Ref Range Status 10/21/2023 Negative Negative Final TREPONEMA PALLIDUM Date Value Ref Range Status 02/16/2024 Non-Reactive Non-Reactive Final HBSAG Date Value Ref Range Status 10/21/2023 Nonreactive Nonreactive Final HEPATITIS C ANTIBODY Date Value Ref Range Status 10/21/2023 Non-Reactive Non-Reactive Final Comment: Please note, per www.CDC.gov: If a patient is known to be at high risk of HCV infection, or is symptomatic, and the physician's suspicion of HCV infection is high, HCV RNA testing is often employed and is of diagnostic value, even after an initial negative anti-HCV test result. HIV-1/HIV-2 SCREEN Date Value Ref Range Status 10/21/2023 Non-Reactive Non-Reactive Final Comment: HIV-1 p24 and HIV-1/HIV-2 Ab Not Detected. HEMOGLOBIN Date Value Ref Range Status 10/21/2023 12.5 12.0 - 16.0 g/dL Final HEMOGLOBIN Date Value Ref Range Status 02/16/2024 12.0 11.7 - 15.5 g/dL Final PLATELET COUNT Date Value Ref Range Status 10/21/2023 177 140 - 440 thou/cu mm Final CHLAMYDIA PROBE Date Value Ref Range Status 10/21/2023 Negative Final N GONORRHOEAE PROBE Date Value Ref Range Status 10/21/2023 Negative Final No Known Allergies OB History Para Term AB Living 1 0 0 0 0 0 SAB IAB Ectopic Multiple Live Births 0 0 0 0 0 # Outcome Date GA Lbr Sai/2nd Weight Sex Type Anes PTL Lv 1 Current Past Medical History: . Date Migraine headache No Significant Past Medical History Pap smear for cervical cancer screening 06/29/2021 Plan: Pap and HPV 06/2024 Past Surgical History: . Laterality Date CLOSED REDUCTION CLAVICLE FRACTURE Problems (from 10/21/23 to present) No problems associated with this episode. Clementine Portillo RN ....10/21/2023 1:32 PM Seasonal allergies 12/30/2022 Pap smear for cervical cancer screening 06/29/2021 Plan: Pap and HPV 06/2024 Idiopathic scoliosis of thoracolumbar spine 02/25/2016 Current Outpatient Medications Medication Sig durable medical equipment (DME) Double electric breast pump. vit 28/iron fum/folic (multivitamin folic acid 1 mg) Take 1 Tablet by mouth once daily. No current facility-administered medications for this visit. Medications have been reviewed by me and are current to the best of my knowledge and ability. OBJECTIVE: BP 121/76 (Cuff Site: Right Arm, Position: Sitting, Cuff Size: Adult Regular) Pulse 67 Temp 98 F (36.7 C) (Oral) LMP 08/29/2023 (Exact Date) SpO2 100% PHYSICAL EXAM EXAM: General Appearance: Well-appearing adult female. Alert, oriented, and appropriate. No acute distress Head: Normocephalic, atraumatic. EENT: Mucous membranes moist. Neck: Supple, no masses or nodes. Pulmonary: Clear to auscultation bilaterally. No wheezes, rales or rhonchi. Breathing comfortably on room air. Cardiovascular Exam: Regular rate and rhythm. No murmurs, rubs or extra heart sounds Extremities: Warm and well-perfused. 1+ pitting edema in the dorsal feet, ankles and lower legs bilaterally. Skin: No rash or abnormalities noted on exposed skin. Neurologic Exam: Grossly normal strength and sensation. No focal deficits. Psychiatric Exam: Appropriate affect. ASSESSMENT AND PLAN: 1. Gestational hypertension without significant proteinuria, (HC) (Primary) Blood pressure normal today. will be following up again in 48 hours to recheck weight. Counseled patient to continue to monitor blood pressures at home. If they remain normal after 48 hours, can discontinue unless new symptoms. Reviewed warning signs and return precautions. Discussed if all blood pressure greater than 160/110, this is an emergency and she should go to the ED. She expresses understanding and agreement with the plan. Mikayla Duong MD .................... 06/04/2024 10:12 AM Progress Notes - OB Encounte r - 05/28/2024 - GA:39w0d 05/28/2024 - 39w0d - Mikayla Duong MD Ready for labor. No changes over the past week. One episode of loose stool yesterday. Contractions: here and there Vaginal bleeding: - Fluid leakage or discharge: - movement: + Headache: - Blurry vision: - Upper abdominal pain: - Swelling in hands, extremities: foot and ankle, unchanged 1. Upcoming testing: n/a 2. RTC in 1 week(s) 3. Reviewed signs and symptoms of pre-eclampsia and labor, reasons to go to triage Mikayla Duong MD Progress Notes - OB Encounte r - 05/21/2024 - GA:38w0d 05/21/2024 - 38w0d - Mikayla Duong MD Overall feeling well. Done with work until after delivery. Planning to go back in the fall when school starts again. Contractions: limited Vaginal bleeding: - Fluid leakage or discharge: - movement: + Headache: occasional in the morning, goes away on its own Blurry vision: - Upper abdominal pain: - Swelling in hands, extremities: Ankles and lower legs 1. Upcoming testing: n/a 2. RTC in 1 week(s) 3. Reviewed signs and symptoms of pre-eclampsia and labor, reasons to go to triage Mikayla Duong MD Progress Notes - OB Encounte r - 05/16/2024 - GA:37w2d 05/16/2024 - 37w2d - Mikayla Duong MD Restless legs feeling at nighttime. Tried magnesium without much improvement. Some swelling in the legs and feet. Contractions: [place]-lacy Vaginal bleeding: - Fluid leakage or discharge: - movement: + Headache: - Blurry vision: - Upper abdominal pain: - Swelling in hands, extremities: feet bilaterally 1. Upcoming testing: none 2. RTC in 1 week(s) 3. Reviewed signs and symptoms of pre-eclampsia and labor, reasons to go to triage Mikayla Duong MD [facility] GA:36w0d 05/07/2024 - 36w0d - Mikayla Duong MD Doing well. Growth US today shows EFW 54th percentile. R fibroid 9.1 x 8.9 x 3.1 cm, unchanged. Discussed pain control during labor. 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 Would accept nitrous, possibly epidural. Does not want IV pain medication. Contractions: not really Vaginal bleeding: - Fluid leakage or discharge: - movement: + Headache: - Blurry vision: - Upper abdominal pain: - Swelling in hands, extremities: - 1. Upcoming testing: GBS today 2. RTC in 1 week(s) 3. Reviewed signs and symptoms of pre-eclampsia and labor, reasons to go to triage Mikayla Duong MD Progress Notes - OB Encounte r - 04/23/2024 - GA:34w0d 04/23/2024 - 34w0d - Mikayla Duong MD Wondering if something should be done about her fibroid after delivery. Otherwise feeling well. Contractions: occasional, especially with prolonged sitting Vaginal bleeding: - Fluid leakage or discharge: - movement: + Headache: - Blurry vision: - Upper abdominal pain: - Swelling in hands, extremities: Mild below the ankle bone 1. Upcoming testing: GBS and repeat growth US at next visit 2. Breast pump provided today in the clinic 3. RTC in 2 week(s) 4. Reviewed signs and symptoms of pre-eclampsia and labor, reasons to go to triage Mikayla Duong MD TRICAL PROJECT ENGINEER Progress Notes - OB Encounte r - 04/12/2024 - GA:32w3d 04/12/2024 - 32w3d - Mikayla Duong MD Requests letter of medical necessity for classes. Some april-lacy contractions. Preliminary report from growth US today shows EFW 14th percentile and mid/right fibroid 9 cm, previously 7 cm. Vaginal bleeding: - Fluid leakage or discharge: - movement: - Headache: - Blurry vision: - Upper abdominal pain: - Swelling in hands, extremities: - 1. Upcoming testing: Recheck growth at 36 weeks 2. RTC in 2 week(s) 3. Reviewed signs and symptoms of pre-eclampsia and labor, reasons to go to triage Mikayla Duong MD TRICAL PROJECT ENGINEER Progress Notes - OB Encounte r - 03/26/2024 - GA:30w0d 03/26/2024 - 30w0d - Mikayla Duong MD SUBJECTIVE: Maggie Rehman is a 33 y.o. female at 30+0 weeks. Requests prescription for breast pump. Dry skin on her face. Using Neutrogena and Oil of Olay moisturizer. Vaginal itching. Notices in the shower. OBJECTIVE: see OB vitals flow sheet ASSESSMENT & PLAN 1. Encounter for supervision of normal first in third trimester (Primary) 30 weeks gestation with no complications labor signs and symptoms reviewed with patient including pain, cramping, bleeding or leaking fluid. 2. Vaginal itching - TRICHOMONAS, ALE, AND BACTERIAL VAGINOSIS BY PETRA; Future - TRICHOMONAS, ALE, AND BACTERIAL VAGINOSIS BY PETRA 3. Care and examination of lactating mother - durable medical equipment (DME); Double electric breast pump. Dispense: 1 Each; Refill: 0 RTC 2 weeks. Mikayla Duong MD .................... 03/26/2024 1:20 PM TRICAL PROJECT ENGINEER Progress Notes - OB Encounte r - 03/12/2024 - GA:28w0d 03/12/2024 - 28w0d - Mikayla Duong MD Normal hemoglobin, passed GCT at the last visit. Discussed expectations for the third trimester. Patient is agreeable to receiving Tdap today. 1. Upcoming testing: Growth US and recheck fibroid at 32-34 weeks 2. RTC in 2 week(s) 3. Reviewed signs and symptoms of pre-eclampsia and labor, reasons to go to triage Mikayla Duong MD TRICAL PROJECT ENGINEER Progress Notes - OB Encounte r - 02/16/2024 - GA:24w3d 02/16/2024 - 24w3d - Mikayla Duong MD GCT today. Normal survey. EFW 49th percentile. Did not find out sex. She has noticed tingling in her R lateral thigh when she lays on that side at night. Will also sometimes feel numbness on the other side. Goes away if she turns over. Not occurring at other times. Flu shot today. Declines COVID-19 vaccine. Contractions: - Vaginal bleeding: - Fluid leakage or discharge: + movement: + Headache: here and there, not severe Blurry vision: - Upper abdominal pain: - Swelling in hands, extremities: - 1. Upcoming testing: GCT, hgb, syphilis today 2. RTC in 4 week(s) 3. Reviewed signs and symptoms of pre-eclampsia and labor, reasons to go to triage Mikayla Duong MD TRICAL PROJECT ENGINEER Progress Notes - OB Encounte r - 01/19/2024 - GA:20w3d 01/19/2024 - 20w3d - Mikayla Duong MD 20 week ultrasound yesterday. Everything looked good; final report is pending. Not finding out sex. EFW 49th percentile. Notes that she is quite squeamish with blood. Concerned about how this may affect labor and delivery. Contractions: little cramping here and there. Vaginal bleeding: - Fluid leakage or discharge: - movement: + Headache: here and there Blurry vision: - Upper abdominal pain: - Swelling in hands, extremities: - 1. Upcoming testing: GCT, hgb, syphilis at next visit 2. RTC in 4 week(s) 3. Reviewed signs and symptoms of pre-eclampsia and labor, reasons to go to triage Mikayla Duong MD TRICAL PROJECT ENGINEER Progress Notes - OB Encounte r - 12/21/2023 - GA:16w2d 12/21/2023 - 16w2d - Mikayla Duong MD Overall feeling well. No more nausea, more energy. She has 20 week ultrasound scheduled 01/18/24. Not wanting to know baby's sex. Abdominal cramping/pain: - Vaginal bleeding: - movement: not yet Vaginal discharge: - Other concerns/questions: answered 1. RTC in 4 weeks 2. Upcoming testing: n/a 3. Upcoming imagin week survey 4. Discussed flu and COVID-19 vaccines, patient declines for now, may consider later Mikayla Duong MD Progress Notes - OB Encounte r - 11/21/2023 - GA:12w0d 11/21/2023 - 12w0d - Mikayla Duong MD FIRST OB VISIT HPI: Maggie Maldonado is a 33 y.o. female at 12w0d with farah intrauterine here today for a initial OB exam. Estimated due date is Estimated Date of Delivery: 06/04/24 based on LMP. Nausea/Vomiting: yes, mild Taking vitamins: yes Options of sequential screen, cell-free DNA testing, amniocentesis were discussed. Patient is not interested in pursuing testing. 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 Lives with Wolfgang. 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 They work in [employer]. 2 dogs. Planning to deliver [facility]. First . Planned . OB History Para Term AB Living 1 SAB IAB Ectopic Multiple Live Births # Outcome Date GA Lbr Sai/2nd Weight Sex Type Anes PTL Lv 1 Current Past Medical History: . Date Migraine headache No Significant Past Medical History Pap smear for cervical cancer screening 06/29/2021 Plan: Pap and HPV 06/2024 Past Surgical History: . Laterality Date CLOSED REDUCTION CLAVICLE FRACTURE Family History Problem Relation Age of Onset Good Health Mother Hypertension Father Good Health Sister Heart Disease Maternal Grandmother Skin cancer Maternal Grandmother Arthritis Maternal Grandfather Asthma Maternal Grandfather Diabetes Maternal Grandfather Parkinsonism Maternal Grandfather Dementia Maternal Grandfather Cancer Paternal Grandmother Social History Tobacco Use Smoking status: Never Smokeless tobacco: Never Substance Use Topics Alcohol use: Not Currently Comment: occassionnally Current Outpatient Medications Medication Sig vit 28/iron fum/folic (multivitamin folic acid 1 mg) Take 1 Tablet by mouth once daily. No current facility-administered medications for this visit. Medications have been reviewed by me and are current to the best of my knowledge and ability. ALLERGIES Patient has no known allergies. MENTAL HEALTH HISTORY History of psychiatric diagnosis: None Current mental health provider: not applicable Currently taking any psychiatric medications? Not Applicable INFECTION HISTORY Current Drug Use: none Relevant infection history from OB Questionnaire: none REVIEW OF SYSTEMS Comprehensive ROS complete and negative other than noted in HPI and on OB Questionnaire. PHYSICAL EXAM BP 106/71 (Cuff Site: Right Arm, Position: Sitting, Cuff Size: Adult Regular) Pulse 70 Temp 99.5 F (37.5 C) (Oral) Ht 1.745 m (5' 8.7) Wt 67.6 kg (149 lb) LMP 08/29/2023 (Exact Date) SpO2 100% BMI 22.20 kg/m General Appearance: Alert, appropriate appearance for age. No acute distress. HEENT Exam: Grossly normal. Neck/Thyroid Exam: Supple, no masses, nodes or enlargement. Lungs: Clear to auscultation bilaterally. Breast Exam: Not indicated. Cardiovascular Exam: Regular rate and rhythm. S1, S2, no murmur. Abd: Soft, non-tender, no masses or organomegaly. Skin: no rashes or lesions. Lymphatics: no nodes palpable. Psychiatric Exam: Alert and oriented x 3, appropriate affect. ASSESSMENT/PLAN 33 y.o. at 12w0d with farah intrauterine . ICD-10-CM 1. Encounter for supervision of normal first in first trimester Z34.01 vit 28/iron fum/folic (multivitamin folic acid 1 mg) US OB BASIC ANATOMY SCREEN SINGLE TA Satisfactory exam. Demonstrates appropriate and health-seeking behaviors toward her . Verbalizes good understanding of care schedule and the importance of coming to each visit as scheduled. Start/continue vitamins. Reviewed labs. She was encouraged to call the office with any questions or concerns. Body mass index is 22.2 kg/m . Diet and expected weight gain discussed with patient. Mikayla Duong MD Progress Notes - OB Encounte r - 10/21/2023 - GA:7w4d 10/21/2023 - 7w4d - Clementine Portillo RN SUBJECTIVE: Maggie Maldonado is a 33 y.o. female, , who presents for confirmation and ob education. Patient presents to the clinic alone. Had positive test at home. This was Planned, Desired. Patient was not on contraception. 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 MENSTRUAL HISTORY: Patient's last menstrual period was 08/29/2023 (exact date).: Cycle Regularity: regular, every 28-30 days Past Medical History: . Date Migraine headache No Significant Past Medical History Pap smear for cervical cancer screening 06/29/2021 Plan: Pap and HPV 06/2024 OB History Para Term AB Living 1 SAB IAB Ectopic Multiple Live Births # Outcome Date GA Lbr Sai/2nd Weight Sex Type Anes PTL Lv 1 Current 5P'S SUBSTANCE ABUSE SCREEN FOR ALCOHOL, DRUGS AND TOBACCO: Did any of your parents have a problem with using alcohol or drugs? Dad's father, drinks a lot Do any of your friends (peers) have problems with drug or alcohol use? No Does your partner have a problem with drug or alcohol use? No Before you knew you were , how often did you drink beer, wine, wine coolers or liquor or use any kind of drug? Rarely In the past month, how often did you drink beer, wine, wine coolers or liquor or use any kind of drug? Not at all How much did you smoke, vape or use tobacco or nicotine in any form before you knew you were ? Don't Smoke, Vape or use Tobacco Genetic Screening Genetic Screening/Teratology Counseling- Includes patient, baby's father, or anyone in either family with: Patient's age 35 years or older as of estimated date of delivery: No Thalassemia (Wallisian, Maltese, Mediterranean, or background): MCV less than 80: No Neural tube defect (Meningomyelocele, Spina bifida, or Anencephaly): No Congenital heart defect: No Down syndrome: No Marcelo-Sachs (Ashkenazi Restoration, Cajun, English Georgian): No Jorden disease (Ashkenazi Restoration): No Familial dysautonomia (Ashkenazi Restoration): No Sickle cell disease or trait (): No Hemophilia or other blood disorders: No Muscular dystrophy: Yes (Comment: Dad's grandma) Cystic fibrosis: No Harleen's chorea: No Intellectual disability and/or autism: No Other inherited genetic or chromosomal disorder: No Maternal metabolic disorder (eg. Type 1 diabetes, PKU): No Patient or baby's father had child with defects not listed above: No Recurrent loss, or a stillbirth: No Medications (including supplements, vitamins, herbs, or OTC drugs)/illicit/recreational drugs/alcohol since last menstrual period: No CURRENT MEDICATIONS: Current Outpatient Medications Medication Sig fluticasone (50 mcg per actuation) nasal solution (FLONASE) SHAKE LIQUID AND USE 2 SPRAYS IN EACH NOSTRIL EVERY DAY norgestimate-ethinyl estradiol, 0.25-35 mg-mcg, (Estarylla) 0.25-35 mg-mcg tablet Take 1 Tablet by mouth once daily. olopatadine (PATANOL) 0.1 % ophthalmic solution Place 1 Drop into both eyes two times daily. As needed No current facility-administered medications for this visit. Medications have been reviewed by me and are current to the best of my knowledge and ability. ALLERGIES: Patient has no known allergies. OBJECTIVE: Ht 1.74 m (5' 8.5) Wt 67.9 kg (149 lb 9.6 oz) LMP 08/29/2023 (Exact Date) BMI 22.42 kg/m No results found for: PREGURINE ASSESSMENT/PLAN: No diagnosis found. EDUCATION/PATIENT INSTRUCTIONS - Advised patient to start/continue vitamin. - Discussed risk of using alcohol, tobacco, other drugs in . - Discussed healthy lifestyle in . - Provided copy of Beginnings book and book inserts, discussed [id number] medications, and follow up. - Encouraged patient to call clinic at [phone] with any vaginal bleeding, fluid leaking from vagina, severe abdominal pain, nausea with severe vomiting, fever higher than 100.4F, painful urination, headache not relieved by Tylenol, or other concerns - labs completed with today's visit. Ordered. - Patient informed to schedule 1st trimester dating ultrasound between 7-10 weeks. - Initial OB appointment with FP/OB scheduled. PHQ-9, and COVID-19 vaccine discussion to be completed at this visit. Future Appointments Date Time Provider Department Center 11/21/2023 4:00 PM Mikayla Duong MD [facility] Portillo RN .................... 10/21/2023 1:26 PM Last Filed Vital Signs Vital Sign Reading Time Taken Comments Blood Pressure 121/76 06/04/2024 10:18 AM CDT Pulse 67 06/04/2024 10:18 AM CDT Temperature 36.7 C (98 F) 06/04/2024 10:18 AM CDT Respiratory Rate 16 12/30/2022 8:23 AM CDT Oxygen Saturation 100% 06/04/2024 10:18 AM CDT Inhaled Oxygen Concentration - - Weight 84.8 kg (187 lb) 05/28/2024 10:00 AM CDT Height 174.5 cm (5' 8.7) 11/21/2023 3:35 PM CDT Body Mass Index 27.86 11/21/2023 3:35 PM CDT Plan of Treatment Upcoming Encounters Date Type Department Care Team (Late st Contact Info) Description 07/09/2024 11:20 AM CDT Office Visit [address] [id number] Jarvis Saunders MD [address] [place] [address] Health Maintenance Due Date Last Done Comments COVID-19 vaccine series ( season) 2023 06/29/2021 Pap test for age 21-65 06/29/2024 06/29/2021, 2016 BMI (ht and wt on same day) for age 18+ 11/20/2024 11/21/2023, 10/21/2023, 12/30/2022, Additional history exists Depression screening for age 12+ 01/18/2025 01/19/2024, 01/18/2024, 06/29/2021, Additional history exists Tetanus booster 03/12/2034 03/12/2024, 12/09/2015, 10/22/2004 HIV for age 15-65 Completed 10/21/2023 Hepatitis C screening for age 18-79 Completed 10/21/2023 Influenza Vaccine Completed 02/16/2024, , 02/18/2003, Additional history exists Tdap Completed 03/12/2024, 01/29, 10/22/2004 Pneumococcal series for age 6-49 Aged Out No longer eligible based on patient's age to complete this topic RSV vaccine for adults or (No Doses Required) Completed Procedures Procedure Name Priority Date/Time Associated Diagnosis Comments SCAN-LABORATORY REPORT 06/03/2024 12:00 AM CDT SCAN-LABORATORY REPORT 06/03/2024 12:00 AM CDT SCAN-LABORATORY REPORT 06/02/2024 12:00 AM CDT SCAN-LABORATORY REPORT 06/01/2024 12:00 AM CDT SCAN-LABORATORY REPORT 06/01/2024 12:00 AM CDT SCAN-LABORATORY REPORT 06/01/2024 12:00 AM CDT SCAN-LABORATORY REPORT 06/01/2024 12:00 AM CDT SCAN-PATHOLOGY REPORT 06/01/2024 12:00 AM CDT SCAN-LABORATORY REPORT 06/01/2024 12:00 AM CDT SCAN-OPERATIVE/PROC EDURE REPORT 06/01/2024 12:00 AM CDT VAGINAL/RECTAL OB STREP PCR Routine 05/07/2024 10:34 AM CDT Encounter for supervision of normal first in third trimester (HC) US OB FOLLOW UP ANY TRI SINGLE TA Routine 05/07/2024 9:32 AM CDT Encounter for supervision of normal first in third trimester (HC) US OB FOLLOW UP ANY TRI SINGLE TA Routine 04/12/2024 11:59 AM ELECTRICAL PROJECT ENGINEER Encounter for supervision of normal first in first trimester (HC) TRICHOMONAS, ALE, AND BACTERIAL VAGINOSIS BY PETRA Routine 03/26/2024 2:00 PM ELECTRICAL PROJECT ENGINEER Vaginal itching ANTI HIV 1/2 Routine 10/21/2023 2:15 PM CDT Encounter for supervision of normal first in first trimester (HC) ANTI HCV Routine 10/21/2023 2:15 PM CDT Encounter for supervision of normal first in first trimester (HC) BISQUE GRADER THIN PREP PAP SCREEN IMAGED Routine 06/29/2021 2:31 PM CDT Pap smear for cervical cancer screening from Last 3 Months or Most Recently Relevant to Health Maintenance Results * SCAN-LABORATORY REPORT (06/03/2024 12:00 AM CDT) Only the most recent of8 resultswithin the time period is included. us Scanner OTHER Final Result * SCAN-OPERATIVE/PROCEDURE REPORT (06/01/2024 12:00 AM CDT) us Scanner OTHER Final Result * SCAN-PATHOLOGY REPORT (06/01/2024 12:00 AM CDT) us Scanner OTHER Final Result * VAGINAL/RECTAL OB STREP PCR (05/07/2024 10:34 AM CDT) Vaginal/Rectal OB Strep B PCR Negative 05/09/2024 10:31 AM CDT [facility] Other (Vaginal/Rectal) Non-Blood / Unknown 05/07/2024 10:34 AM CDT 05/07/2024 10:34 AM CDT us Mikayla Duong MD MICROBIOLOGY Final Resul t [facility] [address] [place] [address], * US OB FOLLOW UP ANY TRI SINGLE TA (05/07/2024 9:32 AM CDT) Only the most recent of2 resultswithin the time period is included. Anatomical Region Laterality Modality , 2or 3 TRIMESTER Ultrasound Impressions 05/10/2024 1:39 PM CDT 1. Single live intrauterine gestation at 36 weeks 2 days. ROSALIE 06/02/2024. Estimated weight 2850 grams which lies at the 54th percentile. 2. Mid right uterine fibroid measuring 9.1 x 8.9 x 3.1 cm, probably not significantly changed. Agnes Christine M.D. [facility] [employer] [email or web address] / Narrative 05/10/2024 1:39 PM CDT For Patients: As a result of the Cures Act, medical imaging exams and procedure reports are released immediately into your electronic medical record. You may view this report before your referring provider. If you have questions, please contact your health care provider. OBSTETRICAL ULTRASOUND FOLLOW-UP, 05/07/2024 CLINICAL HISTORY: Growth. TECHNIQUE: Multiple sonographic images were obtained transabdominally. COMPARISON: 04/12/2024. FINDINGS: LMP: 08/29/2023. Gestational age by LMP: 36 weeks 0 days. Gestational age by first ultrasound: 36 weeks 2 days. Gestational age by today's ultrasound: 36 weeks 2 days. ROSALIE by LMP: 06/04/2024. ROSALIE by first ultrasound: 06/02/2024. ROSALIE by today's ultrasound: 06/02/2024. Heart Rate: 158 beats per minute. SDP: 4.6 cm. Cervical Length: Not visualized. Estimated Weight: 2850 grams. Percentile: 54%. Placenta: Posterior. Position: Vertex. BPD: 89.4 mm, 36 weeks 2 days. 64% HC: 321.3 mm, 36 weeks 2 days. 25% AC: 323.8 mm, 36 weeks 3 days. 69% FL: 69.4 mm, 35 weeks 5 days. 34% COMMENTS: Mid right uterine fibroid measuring 9.1 x 8.9 x 3.8 cm, previously measuring 8.1 x 9.1 x 3.8 cm, probably not significantly changed. us Mikayla Duong MD US Final Resul t * TRICHOMONAS, ALE, AND BACTERIAL VAGINOSIS BY PETRA (03/26/2024 2:00 PM ELECTRICAL PROJECT ENGINEER) ALE SPECIES Negative Negative 1:52 PM ELECTRICAL PROJECT ENGINEER [facility] ALE GLABRATA Negative Negative 03/27/2024 1:52 PM ELECTRICAL PROJECT ENGINEER [facility] TRICHOMONAS VVA Negative Negative 1:52 PM ELECTRICAL PROJECT ENGINEER [facility] BACTERIAL VAGINOSIS Negative Negative 03/27/2024 1:52 PM ELECTRICAL PROJECT ENGINEER [facility] Other VAGINAL SWAB / Unknown Non-Blood / Unknown 03/26/2024 2:00 PM ELECTRICAL PROJECT ENGINEER 03/26/2024 2:07 PM ELECTRICAL PROJECT ENGINEER us Mikayla Duong MD MICROBIOLOGY Final Resul t Performing Organization Address City/[facility]/ZIP Co de Phone Number [facility] [address] [place] [address], [place] * ANTI HCV (10/21/2023 2:15 PM CDT) Pathologist [facility] HEPATITIS C ANTIBODY Non-Reacti ve Non-React shana 10/21/2023 10:49 PM CDT [facility] Comment:Please note, per www .CDC.gov: If a patient is known to be at high risk of HCV infection, or is symptomatic, and the physician's suspicion of HCV infection is high, HCV RNA testing is often employed and is of diagnostic value, even after an initial negative anti-HCV test result. Blood BLOOD SPECIMEN / Unknown Venipuncture / Unknown 10/21/2023 2:15 PM CDT 10/21/2023 2:16 PM CDT us Mikayla Duong MD SEND OUTS Final Resul t [facility] [address] [place] [id number], [place] * ANTI HIV 1/2 (10/21/2023 2:15 PM CDT) HIV-1/HIV-2 SCREEN Non-Reacti ve Non-Reacti ve 10/21/2023 10:48 PM CDT [facility] Comment:HIV-1 p24 and HIV-1/ HIV-2 Ab Not Detected. Blood BLOOD SPECIMEN / Unknown Venipuncture / Unknown 10/21/2023 2:15 PM CDT 10/21/2023 2:16 PM CDT us Mikayla Duong MD SEND OUTS Final Resul t [facility] [address] [place] [address], [place] * BISQUE GRADER THIN PREP PAP SCREEN IMAGED (06/29/2021 2:31 PM CDT) Case Report Gynecologic Cytology Report Case: [id number] Authorizing Provider: Jarvis Saunders MD Collected: 06/29/2021 1431 Ordering Location: [facility] Received: 06/29/2021 1431 Clinic First Screen: Adeel Torre Specimen: BISQUE GRADER ThinPrep Vial Screening, Cervical 07/13/2021 11:23 AM CDT [facility] INTERPRETATION/ RESULT NEGATIVE FOR INTRAEPITHELIAL LESION OR MALIGNANCY (NIL) (none) 07/13/2021 11:23 AM CDT [facility] at 1123 CDT SPECIMEN ADEQUACY Satisfactory for evaluation Endocervical component present Scant cellularity 07/13/2021 11:23 AM CDT [facility] HPV REQUEST HPV if ASCUS 07/13/2021 11:23 AM CDT [facility] Date of LMP 06/25/21 07/13/2021 11:23 AM CDT [facility] Last Pap Date 05/10/16 07/13/2021 11:23 AM CDT [facility] Last Pap Result NIL 11:23 AM CDT [facility] Abnormal Pap or [place] Bx in last 5 years No 07/13/2021 11:23 AM CDT [facility] Menstrual Status Regular Periods 07/13/2021 11:23 AM CDT [facility] [place] Bx Done Today No 07/13/2021 11:23 AM CDT [facility] Additional Information None given 07/13/2021 11:23 AM CDT [facility] Comment: Cytology is screened at [facility] - [address], [place] [address] and [facility] - [address], [place] [address] and [facility] - [address] [place] [address] Interpreted at [facility] - [address], [place] [address] Automated Review Successful 07/13/2021 11:23 AM CDT [facility] Comment:Specimen processed s uccessfully by automated infrastructure project manager device, ThinPrep Imaging System, [employer] Note The pap test is a screening technique, not a diagnostic procedure. It is used primarily to screen for squamous cancers and precursor lesions. Published studies have shown that it is subject to both false negative and false positive results. The pap test should not be used as the sole means to diagnose or exclude pre-malignant and malignant lesions. 07/13/2021 11:23 AM T [facility] Other (Cervical) Non-Blood / Unknown 06/29/2021 2:31 PM CDT 06/29/2021 2:31 PM CDT Jarvis Saunders MD PATHOLOGY/CYTOLOGY Grisel toure Result [facility] 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
--- NOTE | 2024-06-06 14:23 | ED_ITS ---
HPI - General Adult General Date Seen: 06/06/24 Chief complaint: Hypertension Stated complaint: High blood pressure, post 6 days Time Seen by Provider: 06/06/24 14:07 Source: patient Mode of arrival: ambulatory Limitations: no limitations History of Present Illness HPI narrative: Patient is a 34-year-old female 6 days presenting to the emergency department for hypertension. She did have some hypertension while in hospital and was provided medication to manage hypertension while in the hospital but was not discharged on any medications. Has been checking blood p ressures at home when they have been typically 120s/80s she states. Today when she checked her blood pressure started at about 12 30 is been ranging from 146- 154 systolic. Diastolic has also been in the low 100s. Due that she came to be evaluated as she was told to come in for blood pressure skull to by. Has been having headache but this headache has been going on since she was discharged. Denies fevers, chills, chest pain, shortness of breath, vision changes, lightheadedness, dizziness, abdominal pain, weakness, numbness. No other concerns noted at this time. No other medical problems. Related Data Home Medications ?Medication ?Instructions ?Recorded ?Confirmed No Known Home Medications 06/01/24 06/01/24 Previous Rx's ?Medication ?Instructions ?Recorded omeprazole 20 mg capsule,delayed 20 mg PO DAILY #30 caps 06/03/24 release polyethylene glycol 3350 17 gram 17 g PO DAILY #30 ea 06/03/24 oral powder packet (Miralax) sennosides 8.6 mg tablet (Senna 8.6 mg PO BID #60 tabs 06/03/24 Lax) Allergies Allergy/AdvReac Type Severity Reaction Status Date / Time No Known Drug Allergies Allergy Verified 06/06/24 13:57 Review of Systems Status of ROS: Reports: 10 or more systems reviewed and unremarkable except as noted in History and below PFSH PFSH Social History What is your current living situation?: I presently have a place to live Problems where you live: no known problems In the past 12 months, utilities in danger of being shut off: no In past 12 months, lack of transportation kept you from medical appts, meetings, work, or getting things needed for daily living: no In the past 12 mos, have been you worried that your food would run out before you had money to buy more?: never true In the past 12 mos, the food you bought just didn't last and you didn't have money to buy more?: never true Smoking Status: Never smoker Do you use any of these nicotine containing products: None Second hand tobacco smoke exposure: No How often do you have a drink containing alcohol: never How often do you have six or more drinks on one occasion: Never AUDIT-C Alcohol total score: 0 Non-prescribed substance use: denies use How often does anyone, including family, friends and others, physically hurt you : never How often does anyone, including family, friends and others, insult or talk down to you: never How often does anyone, including family, friends and others, threaten you with harm: never How often does anyone, including family, friends and others, scream or curse at you: never service: No Exam Const: Vital Signs, click to edit/add: Vital Signs - 24 hr 06/06/24 14:00 06/06/24 15:45 Temperature 97.4 F L Pulse Rate [Pulse Oximeter] 76 Respiratory Rate 16 Blood Pressure 137/85 Blood Pressure [Ri ght Upper Arm] 150/91 H Pulse Oximetry 98 Oxygen Delivery Me thod Room Air Course Vital Signs Vital signs: Initial Vital Signs Temperature 97.4 F L 06/06/24 14:00 Temperature Source Temporal Artery Scan 06/06/24 14:00 Pulse Rate 76 06/06/24 14:00 Respiratory Rate 16 06/06/24 14:00 Blood Pressure 150/91 H 06/06/24 14:00 Blood Pressure Mean 110 H 06/06/24 14:00 Pulse Oximetry 98 06/06/24 14:00 Oxygen Delivery Method Room Air 06/06/24 14:00 Vital Signs Temperature 97.4 F L 06/06/24 14:00 Pulse Rate 76 06/06/24 14:00 Respiratory Rate 16 06/06/24 14:00 Blood Pressure 150/91 H 06/06/24 14:00 Pulse Oximetry 98 06/06/24 14:00 Oxygen Delivery Method Room Air 06/06/24 14:00 Temperature 97.4 F L 06/06/24 14:00 Pulse Rate 76 06/06/24 14:00 Respiratory Rate 16 06/06/24 14:00 Blood Pressure 137/85 06/06/24 15:45 Pulse Oximetry 98 06/06/24 14:00 Oxygen Delivery Method Room Air 06/06/24 14:00 Medical Decision Making MDM Narrative Medical decision making narrative: Patient is a 34-year-old female presenting to emergency department for hypertension. She is 6 days . She does meet criteria for preeclampsia. Initial blood pressure here was 150/91. Do this I will order lab work for preeclampsia including CBC, CMP, urinalysis. She is having no other symptoms at this time other than headache she has been having since before she was discharged Her platelets are normal. Hemoglobin is about when she was at in the hospital. Her AST has gone up 74 from 54 and ALT has gone up from 54 to 125. Due to this I am concerned about preeclampsia with severe features. I spoke to the on-call OB provider, Dr. Rodriguez, she believes the patient should be admitted. This patient is [facility] I spoke to Dr. Cade, who will admit the patient. Patient is agreeable to admission. Lab Data Labs: Lab Results 06/06/24 06/06/24 Range/Units 14:05 14:30 WBC 5.54 (4.50-11.00) K/uL RBC 3.22 L (4.00-5.20) m/uL Hgb 10.4 L (12.0-16.0) gm/dL Hct 31.2 L (33.0-51.0) % MCV 97 (80-100) fL MCH 32 (26-34) pg MCHC 33 (32-36) gm/dL RDW Coeff of Tracey 13.1 (11.5-15.5) % Plt Count 195 (140-440) K/uL Neut % (Auto) 62.4 (42.0-72.0) % Lymph % (Auto) 26.9 (20-44) % [place] % (Auto) 6.7 (0.0-11.0) % Eos % (Auto) 3.1 (0.0-7.0) % Baso % (Auto) 0.4 (0.0-3.0) % Neut # (Auto) 3.46 (1.7-7.0) K/uL Lymph # (Auto) 1.49 (0.90-2.90) K/uL [place] # (Auto) 0.40 (0.00-0.90) K/UL Eos # (Auto) 0.17 (0.00-0.50) K/uL Baso # (Auto) 0.02 (0.00-0.30) K/uL Abs Immat Gran (auto) 0.03 (0.00-0.30) K/uL Imm/Tot Granulo (auto) 0.5 % Sodium 137 (135-149) mmol/L Potassium 4.3 (3.6-5.1) mmol/L Chloride 105 (96-114) mmol/L Carbon Dioxide 24 (20-32) mmol/L Anion Gap 8 (7-15) mEq/L BUN 14 (5-24) mg/dL Creatinine 0.8 (0.5-1.5) mg/dL Estimated GFR 100 ml/min Glucose 77 (60-115) mg/dL Calcium 9.6 (8.4-10.6) mg/dL Magnesium 2.3 (1.5-2.6) mg/dL Total Bilirubin 0.5 (0.1-1.5) mg/dL Direct Bilirubin 0.3 (0.0-0.5) mg/dL AST 74 H (12-35) U/L ALT 125 H (4-35) U/L Alkaline Phosphatase 74 (40-150) U/L Total Protein 7.3 (6.0-8.3) g/dL Albumin 4.1 (3.3-5.0) g/dL Urine Color Yellow (Yellow) Urine Appearance Clear (Clear) Urine pH 6.5 (5.0-8.5) Ur Specific [place] 1.010 (1.000-1.030) Urine Protein Negative (Negative) Urine Glucose (UA) Negative (Negative) Urine Ketones Negative (Negative) Urine Blood 2+ A (Negative) Urine Nitrite Negative (Negative) Urine Bilirubin Negative (Negative) Urine Urobilinogen 0.2 (0.2-1.0) Ur Leukocyte Esterase 1+ A (Negative) Urine RBC 2-5 A (0-2) Urine WBC 5-10 A (0-5) Ur Squamous Epith Cells Few (None-Few) Urine Bacteria Few A (None) Discharge Plan Discharge Clinical Impression: Pre-eclampsia Qualifiers: Trimester: unspecified trimester Qualified Code(s): O14.90 - Unspecified pre- eclampsia, unspecified trimester Patient Disposition: Admit to OB Condition: Stable Prescriptions: No Action No Known Home Medications polyethylene glycol 3350 [Miralax] 17 gram Powder In Packet 17 g PO DAILY Qty: 30 0RF omeprazole 20 mg capsule,delayed release(DR/EC) 20 mg PO DAILY Qty: 30 2RF sennosides [Senna Lax] 8.6 mg Tablet 8.6 mg PO BID Qty: 60 0RF Follow Up/Referrals: Jarvis Saunders MD [Primary Care Provider] -
[2024-06-06 14:44] LABS: Basophils Absolute Auto 0.02 K/uL (0.00-0.30); Basophils Percent Auto 0.4 % (0.0-3.0); Eosinophils Absolute Auto 0.17 K/uL (0.00-0.50); Eosinophils Percent Auto 3.1 % (0.0-7.0); Hematocrit 31.2 % (33.0-51.0); Hemoglobin* 10.4 gm/dL (12.0-16.0); Immature Granulocytes Abs Auto 0.03 K/uL (0.00-0.30); Immature Granulocytes Pct Auto 0.5 %; Lymphocytes Absolute Auto 1.49 K/uL (0.90-2.90); Lymphocytes Percent Auto 26.9 % (20-44); Mean Corpuscular HGB Conc 33 gm/dL (32-36); Mean Corpuscular Hemoglobin 32 pg (26-34); Mean Corpuscular Volume 97 fL (80-100); Monocytes Percent Auto 6.7 % (0.0-11.0); Neutrophils Absolute Auto 3.46 K/uL (1.7-7.0); Neutrophils Percent Auto 62.4 % (42.0-72.0); Platelet Count* 195 K/uL (140-440); RDW Coefficient of Variation % 13.1 % (11.5-15.5); Red Blood Count 3.22 m/uL (4.00-5.20); White Blood Count* 5.54 K/uL (4.50-11.00)
[2024-06-06 14:53] LABS: Slide Review Reflex No
[2024-06-06 14:58] LABS: Appearance Urine Clear (Clear); Bilirubin Urine Negative (Negative); Blood Urine 2+ (Negative); Color Urine Yellow (Yellow); Glucose Urine Negative (Negative); Ketones Urine Negative (Negative); Leukocyte Esterase Urine 1+ (Negative); Nitrite Urine Negative (Negative); Protein Urine Negative (Negative); Urobilinogen Urine 0.2 (0.2-1.0); pH Urine 6.5 (5.0-8.5)
[2024-06-06 15:08] LABS: Squamous Epithelial Cell Urine Few (None-Few)
[2024-06-06 15:09] LABS: Bacteria Urine Few
[2024-06-06 15:18] LABS: Albumin* 4.1 g/dL (3.3-5.0); Chloride* 105 mmol/L (96-114); Potassium* 4.3 mmol/L (3.6-5.1); Sodium* 137 mmol/L (135-149)
[2024-06-06 15:20] LABS: Anion Gap 8 mEq/L (7-15); Blood Urea Nitrogen* 14 mg/dL (5-24); Carbon Dioxide* 24 mmol/L (20-32); Creatinine* 0.8 mg/dL (0.5-1.5); Estimated Glomerular Filt Rate 100 ml/min
[2024-06-06 15:21] LABS: Alanine Aminotransferase* 125 U/L (4-35); Alkaline Phosphatase* 74 U/L (40-150); Aspartate Amino Transferase* 74 U/L (12-35); Bilirubin Direct* 0.3 mg/dL (0.0-0.5); Bilirubin Total* 0.5 mg/dL (0.1-1.5); Calcium* 9.6 mg/dL (8.4-10.6); Glucose* 77 mg/dL (60-115); Magnesium* 2.3 mg/dL (1.5-2.6); Total Protein* 7.3 g/dL (6.0-8.3)
--- OUTSIDE RECORDS SUMMARY | 2024-06-06 15:24 | XMS_ITS | Clinical Summary ---
Author Organization [facility] Address [address] [place] [address] Care Team Providers Care Audit Manager Name Role Phone Jarvis Saunders MD Primary Care Provider Mikayla Duong MD Unavailable [phone] Allergies No known active allergies Medications vit [...] Department Care Team Description 06/06/2024 Nurse Triage [facility] [address] [place] [address] Jarvis Saunders MD Care; High Blood Pressure; Headache 06/04/2024 10:00 AM CDT Office Visit [facility] [address] [place] [address] Mikayla Duong MD Follow Up (/BP check) 06/04/2024 Telephone [facility] [address] [place] [address] Jarvis Saunders MD Refill Request (omeprazole) 06/04/2024 Travel 06/03/2024 Orders Only [facility] Scanner 1 scan: (1-Ord) [facility], MULTIPLE LAB RESULTS, 06/03/2024 06/03/2024 Orders Only [facility] Scanner 1 scan: (1-Ord) [facility], MULTIPLE LAB RESULTS, 06/03/2024 06/02/2024 Orders Only [facility] Scanner 1 scan: (1-Ord) [facility], HGB LABS, 06/02/2024 06/01/2024 Orders Only [facility] Scanner 1 scan: (1-Ord) [place], RAPID PLASMA REAGIN, 06/01/2024 06/01/2024 Orders Only [facility] Scanner 1 scan: (1-Ord) [facility], MULTIPLE LABS, 06/01/2024 06/01/2024 Orders Only [facility] Scanner 1 scan: (1-Ord) [facility], MULTIPLE LABS, 06/01/2024 06/01/2024 Orders Only [facility] Scanner 1 scan: (1-Ord) [facility], MULTIPLE LABS, 06/01/2024 06/01/2024 Orders Only [facility] Scanner 1 scan: (1-Ord) [facility], OB PROCEDURE VAG DELIVERY, 06/01/2024 06/01/2024 Orders Only [facility] Scanner 1 scan: (1-Ord) [facility], URINE CREAT, 06/01/2024 06/01/2024 Orders Only [facility] Scanner 1 scan: (1-Ord) [facility], AMNISURE ROM, 06/01/2024 05/28/2024 10:00 AM CDT OB Encounter [facility] [address] [place] [address] Mikayla Duong MD Ultrasound; Care (39 weeks) 05/28/2024 Travel 05/21/2024 10:00 AM CDT OB Encounter [address] [place] [address] Mikayla Duong MD Care (38weeks) 05/21/2024 Travel 05/16/2024 1:55 PM CDT OB Encounter [facility] [address] [place] [address] Mikayla Duong MD Care (37w 2 d); Leg Pain/problem (legs and left hip pain at night ); Edema 05/16/2024 Travel 05/07/2024 10:00 AM CDT OB Encounter [facility] [address] [place] [address] Mikayla Duong MD Care (36) 05/07/2024 9:00 AM CDT Ancillary Procedure [facility] [address] [place] [address] 05/07/2024 Travel 04/23/2024 2:45 PM MOTOR BIKE MECHANIC OB Encounter [facility] [address] [place] [address] Mikayla Duong MD Care (34weeks) 04/23/2024 Travel 2024 Telephone [facility] [address] [facility] [place] [address] Mikayla Duong MD Appointment Request (04/23/2024) 04/12/2024 11:15 AM MOTOR BIKE MECHANIC OB Encounter [facility] [address] [facility] [place] [address] Mikayla Duong MD Care (32+3) 04/12/2024 10:30 AM MOTOR BIKE MECHANIC Ancillary Procedure [facility] [address] [place] [address] 04/12/2024 Travel 03/26/2024 1:05 PM MOTOR BIKE MECHANIC OB Encounter [facility] [address] [facility] [place] [address] Mikayla Duong MD Care (30 weeks) 03/26/2024 Travel 03/12/2024 1:05 PM MOTOR BIKE MECHANIC OB Encounter [facility] [address] [place] [address] Mikayla Duong MD Care (28 weeks /) 03/12/2024 Travel from Last 3 Months Immunizations Immunization Administration Dates Next Due COVID-19 vaccine ([employer]-Bio NTech 30mcg/0.3mL) 12YO+ SHANON-SUCROSE PF, MDV 06/29/2021 [...] on file Legal Sex Female 5:23 AM MOTOR BIKE MECHANIC Gender Identity Not on file Sexual Orientation [...] swelling in the legs and feet. Contractions: [place] Vaginal bleeding: - Fluid leakage or discharge: - movement: + Headache: - Blurry vision: - Upper abdominal pain: - Swelling in hands, extremities: feet bilaterally 1. Upcoming testing: none 2. RTC in 1 week(s) 3. Reviewed signs and symptoms of pre-eclampsia and labor, reasons to go to triage Mikayla Duong MD [facility] [place]:36w0d 05/07/2024 - 36w0d - Mikayla Duong MD Doing well. Growth US today shows EFW 54th percentile. R fibroid 9.1 x 8.9 x 3.1 cm, unchanged. Discussed pain control during labor. Would like to try for natural labor, reviewed the option of school child care attendant support. Would accept nitrous, possibly epidural. Does [...] to go to triage Mikayla Duong MD R BIKE MECHANIC Progress Notes - OB Encounte r - [...] to go to triage Mikayla Duong MD R BIKE MECHANIC Progress Notes - OB Encounte r - [...] Mikayla Duong MD .................... 03/26/2024 1:20 PM R BIKE MECHANIC Progress Notes - OB Encounte r - [...] to go to triage Mikayla Duong MD R BIKE MECHANIC Progress Notes - OB Encounte r - [...] to go to triage Mikayla Duong MD R BIKE MECHANIC Progress Notes - OB Encounte r - [...] to go to triage Mikayla Duong MD R BIKE MECHANIC Progress Notes - OB Encounte r - [...] testing. 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 Lives with Wolfgang. 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 They work in [employer]. 2 dogs. Planning to deliver at [facility]. First . Planned . OB History Para [...] of estimated date of delivery: No Thalassemia (Sammarinese, Syriac, Mediterranean, or background): MCV less than 80: No Neural tube defect (Meningomyelocele, Spina bifida, or Anencephaly): No Congenital heart defect: No Down syndrome: No Marcelo-Sachs (Ashkenazi Yazidi, Cajun, Danish Monegasque): No Jorden disease (Ashkenazi Yazidi): No Familial dysautonomia (Ashkenazi Yazidi): No Sickle cell disease or trait (): [...] of Beginnings book and book inserts, discussed [id number] medications, and follow up. - Encouraged patient to call clinic at [phone] with any vaginal bleeding, fluid leaking from [...] Description 07/09/2024 11:20 AM CDT Office Visit [address] [address] Jarvis Saunders MD [address] [place] [address] Health Maintenance Due Date Last Done Comments [...] TRI SINGLE TA Routine 04/12/2024 11:59 AM MOTOR BIKE MECHANIC Encounter for supervision of normal first in first trimester (HC) TRICHOMONAS, ALE, AND BACTERIAL VAGINOSIS BY PETRA Routine 03/26/2024 2:00 PM MOTOR BIKE MECHANIC Vaginal itching ANTI HIV 1/2 Routine 10/21/2023 2:15 PM CDT Encounter for supervision of normal first in first trimester (HC) ANTI HCV Routine 10/21/2023 2:15 PM CDT Encounter for supervision of normal first in first trimester (HC) NEWSPAPER PHOTOJOURNALIST THIN PREP PAP SCREEN IMAGED Routine 06/29/2021 [...] B PCR Negative 05/09/2024 10:31 AM CDT [facility] Other (Vaginal/Rectal) Non-Blood / Unknown 05/07/2024 10:34 AM CDT 05/07/2024 10:34 AM CDT us Mikayla Duong MD MICROBIOLOGY Final Resul t [facility] [address] [place] [place] [address], * US OB FOLLOW UP ANY TRI [...] significantly changed. Agnes Christine M.D. Diagnostic/Breast Radiologist [employer] [email or web address] CARMELLA/amisha / Narrative 05/10/2024 1:39 PM CDT [...] BACTERIAL VAGINOSIS BY PETRA (03/26/2024 2:00 PM MOTOR BIKE MECHANIC) ALE SPECIES Negative Negative 1:52 PM MOTOR BIKE MECHANIC [facility] ALE GLABRATA Negative Negative 03/27/2024 1:52 PM MOTOR BIKE MECHANIC [facility] TRICHOMONAS VVA Negative Negative 1:52 PM MOTOR BIKE MECHANIC [facility] BACTERIAL VAGINOSIS Negative Negative 03/27/2024 1:52 PM MOTOR BIKE MECHANIC [facility] Other VAGINAL SWAB / Unknown Non-Blood / Unknown 03/26/2024 2:00 PM MOTOR BIKE MECHANIC 03/26/2024 2:07 PM MOTOR BIKE MECHANIC us Mikayla Duong MD MICROBIOLOGY Final Resul t Performing Organization Address City/[facility]/ZIP Co de Phone Number [facility] [address] [place] [address], [place] * ANTI HCV (10/21/2023 2:15 PM CDT) Pathologist [facility] HEPATITIS C ANTIBODY Non-Reacti ve Non-React shana 10/21/2023 10:49 PM CDT [facility] Comment:Please note, per www .CDC.gov: [...] Duong MD SEND OUTS Final Resul t [facility] [address] [place] [address], [place] * ANTI HIV 1/2 (10/21/2023 2:15 PM CDT) HIV-1/HIV-2 SCREEN Non-Reacti ve Non-Reacti ve 10/21/2023 10:48 PM CDT [facility] Comment:HIV-1 p24 and HIV-1/ HIV-2 Ab Not Detected. Blood BLOOD SPECIMEN / Unknown Venipuncture / Unknown 10/21/2023 2:15 PM CDT 10/21/2023 2:16 PM CDT us Mikayla Duong MD SEND OUTS Final Resul t [facility] [address] [place] [address], [place] * NEWSPAPER PHOTOJOURNALIST THIN PREP PAP SCREEN IMAGED (06/29/2021 2:31 PM CDT) Case Report Gynecologic Cytology Report Case: [id number] Authorizing Provider: Jarvis Saunders MD Collected: 06/29/2021 1431 Ordering Location: [facility] Received: 06/29/2021 1431 Clinic First Screen: Adeel Torre Specimen: NEWSPAPER PHOTOJOURNALIST ThinPrep Vial Screening, Cervical 07/13/2021 11:23 AM CDT [facility] INTERPRETATION/ RESULT NEGATIVE FOR INTRAEPITHELIAL LESION OR MALIGNANCY (NIL) (none) 07/13/2021 11:23 AM CDT [facility] at 1123 CDT SPECIMEN ADEQUACY Satisfactory for evaluation Endocervical component present Scant cellularity 07/13/2021 11:23 AM CDT [facility] HPV REQUEST HPV if ASCUS 07/13/2021 11:23 AM CDT [facility] Date of LMP 06/25/21 07/13/2021 11:23 AM CDT [facility] Last Pap Date 05/10/16 07/13/2021 11:23 AM CDT [facility] Last Pap Result NIL 11:23 AM CDT [facility] Abnormal Pap or Belcher Bx in last 5 years No 07/13/2021 11:23 AM CDT [facility] Menstrual Status Regular Periods 07/13/2021 11:23 AM CDT [facility] Belcher Bx Done Today No 07/13/2021 11:23 AM CDT [facility] Additional Information None given 07/13/2021 11:23 AM CDT [facility] Comment: Cytology is screened at [facility] - [address], [place] [address] and [facility] - [address] [place] [address] and [facility] - [address] [place] [address] [facility] - [address], [place] [address] Automated Review Successful 07/13/2021 11:23 AM CDT [facility] Comment:Specimen processed s uccessfully by automated parking enforcement officer device, ThinPrep Imaging System, [employer] Note The pap test is a [...] and malignant lesions. 07/13/2021 11:23 AM T [facility] Other (Cervical) Non-Blood / Unknown 06/29/2021 2:31 PM CDT 06/29/2021 2:31 PM CDT Jarvis Saunders MD PATHOLOGY/CYTOLOGY Grisel toure Result [facility] [address] [place] [address], [place] from Last 3 Months or Most Recently Relevant to Health Maintenance Insurance [employer] Care Teams Audit Manager Relationship Specialty Start Date End Date Jarvis Saunders MD PCP - General 10/03/07 Mikayla Duong MD [address] [place] [address] Family Practice 10/21/23
[2024-06-06] MEDS: MAGNESIUM IV 4 GM/100 ML PIGGYBACK IVPB (17:28)
[2024-06-06] MEDS: LACTATED RINGERS 1000 ML 1,000 ML 75 ML IV (17:29)
[2024-06-06] MEDS: MAGNESIUM Infusion 40 GM/1,000 ML IV.SOLN IVPB (18:01)
--- NOTE | 2024-06-06 18:07 | P.OBHP_ITS ---
OB - H&P; HPI Antepartum History of Present Illness Date Seen: 06/06/24 Chief complaint: High blood pressure, post 6 days Narrative: Maggie Rehman is a 34 year old pp day 6 from a who presented with high home BP readings. Maggie had some elevated BP and minimally elevated LFTs while hospitalized for labor, however these normalized prior to discharge and she has been doing well at home with normal BP readings. Today around noon her BP was noted to be in the 140-150s/100s and she presented to the ER. She reports a mild headache since discharge, but felt it was due to poor hydration and lack of sleep. This is not worse today. She has ongoing swelling in bilateral feet and ankles. No abdominal pain, no vision changes. her labs in the ER were notable for AST of 74 and ALT 125, so has been admitted for preeclampsia with severe features. Magnesium loading dose started already. Review of Systems Status of ROS: Reports: 6 or more systems reviewed and unremarkable except as noted in History and below Meds Home Medications and Allergies Home Medications ?Medication ?Instructions ?Recorded ?Confirmed ?Type No Known Home Medications 06/01/24 06/01/24 History Allergies Allergy/AdvReac Type Severity Reaction Status Date / Time No Known Drug Allergies Allergy Verified 06/06/24 18:13 OB - H&P: Exam Physical Exam: Vital signs: Temp Pulse Resp BP Pulse Ox O2 Del Method 98.6 F 54 L 16 117/78 100 Room Air 06/06/24 16:58 06/06/24 16:58 06/06/24 16:58 06/06/24 16:58 06/06/24 16:58 06/06/24 16:58 Constitutional: Constitutional: no acute distress Routine HEENT Exam: Head: Present atraumatic Eye: Present EOMI and normal appearance ENT: Present mucous membranes moist Routine Respiratory Exam: Respiratory: Present CTA bilaterally Routine Cardiovascular Exam: Cardiovascular: RRR Routine Extremities Exam: Extremities: Present pedal edema (1+ to ankles bilaterally ) Routine Neurological Exam: Present alert, oriented X3 and CN II-XII intact Detailed Neurological Exam: DTR: 3+: patellar (L) and patellar (R) Comments: no clonus Routine Psychiatric Exam: Present normal affect and normal thought process OB - Results Labs Labs: Short CBC 06/06/24 Range/Units 14:30 WBC 5.54 (4.50-11.00) K/uL Hgb 10.4 L (12.0-16.0) gm/dL Hct 31.2 L (33.0-51.0) % Plt Count 195 (140-440) K/uL BMP 06/06/24 14:30 Sodium 137 Potassium 4.3 Chloride 105 Carbon Dioxide 24 BUN 14 Creatinine 0.8 Glucose 77 Calcium 9.6 Liver Function 06/06/24 Range/Units 14:30 Total Bilirubin 0.5 (0.1-1.5) mg/dL Direct Bilirubin 0.3 (0.0-0.5) mg/dL AST 74 H (12-35) U/L ALT 125 H (4-35) U/L Alkaline Phosphatase 74 (40-150) U/L Albumin 4.1 (3.3-5.0) g/dL Urine 06/06/24 Range/Units 14:05 Urine Color Yellow (Yellow) Urine Appearance Clear (Clear) Urine pH 6.5 (5.0-8.5) Ur Specific [place] 1.010 (1.000-1.030) Urine Protein Negative (Negative) Urine Glucose (UA) Negative (Negative) OB - A/P Antepartum Assessment and Plan (1) Pre-eclampsia: Status: Acute (2) Pre-eclampsia, severe, delivered: Status: Acute Plan Magnesium started, will continue for 24 hours. Will reassess labs 6 hours from previous draw and if stable, will recheck in AM. For now, BPs are 130s/80s so will monitor, if develops readings >140/90s, will start labetalol.
[2024-06-06] MEDS: ACETAMINOPHEN 500 MG TABLET 1000 MG PO (18:33)
[2024-06-06 20:27] LABS: Hematocrit 30.9 % (33.0-51.0); Hemoglobin* 10.2 gm/dL (12.0-16.0); Mean Corpuscular HGB Conc 33 gm/dL (32-36); Mean Corpuscular Hemoglobin 32 pg (26-34); Mean Corpuscular Volume 97 fL (80-100); Platelet Count* 219 K/uL (140-440); Red Blood Count 3.18 m/uL (4.00-5.20); White Blood Count* 6.89 K/uL (4.50-11.00)
[2024-06-06 20:33] LABS: Slide Review Reflex No
[2024-06-06 20:41] LABS: Blood Urea Nitrogen* 15 mg/dL (5-24); Creatinine* 0.8 mg/dL (0.5-1.5); Est. Creatinine Clearance* 101.84; Estimated Glomerular Filt Rate 100 ml/min
[2024-06-06 20:42] LABS: Alanine Aminotransferase* 109 U/L (4-35); Aspartate Amino Transferase* 61 U/L (12-35)
[2024-06-06 20:43] LABS: Magnesium* 4.3 mg/dL (1.5-2.6)
[2024-06-07] VITALS (12 sets, daily range): BP systolic 109–138; BP diastolic 69–86; PULSE 58–97; RESP 16–22; TEMP 36.6–36.9; O2SAT 97–100
[2024-06-07] MEDS: ACETAMINOPHEN 500 MG TABLET 1000 MG PO ×3 (00:27→13:30)
[2024-06-07] MEDS: IBUPROFEN 600 MG TABLET PO ×2 (00:30→08:37)
[2024-06-07 02:30] LABS: Hematocrit 29.4 % (33.0-51.0); Hemoglobin* 9.9 gm/dL (12.0-16.0); Mean Corpuscular HGB Conc 34 gm/dL (32-36); Mean Corpuscular Hemoglobin 32 pg (26-34); Mean Corpuscular Volume 96 fL (80-100); Platelet Count* 206 K/uL (140-440); Red Blood Count 3.08 m/uL (4.00-5.20); White Blood Count* 6.07 K/uL (4.50-11.00)
[2024-06-07 02:38] LABS: Slide Review Reflex No
[2024-06-07 02:46] LABS: Alanine Aminotransferase* 96 U/L (4-35); Aspartate Amino Transferase* 51 U/L (12-35); Blood Urea Nitrogen* 14 mg/dL (5-24); Creatinine* 0.7 mg/dL (0.5-1.5); Est. Creatinine Clearance* 116.39; Estimated Glomerular Filt Rate 118 ml/min
[2024-06-07 02:48] LABS: Magnesium* 4.6 mg/dL (1.5-2.6)
--- NOTE | 2024-06-07 07:55 | P.OBPN_ITS ---
OB - PN:Subj Subjective Date Seen: 06/07/24 Narrative: Patient is PPD 6, readmitted on 06/06/24 for pre-eclampsia with severe features. On magnesium currently. Reports a dull headache across her forehead, rating pain 3-4/10. No vision changes or dizziness. Headache is similar to what she ex perienced during labor as well as daily at home for the past several days. Feels like it could be due to lack of sleep. Has often improved with caffeine in the past. No RUQ pain. LE swelling is improving. OB - PN: Obj Exam Physical Exam: Vital signs: Temp Pulse Resp BP Pulse Ox O2 Del Method 98.5 F 72 20 133/72 99 Room Air 06/07/24 00:39 06/07/24 06:00 06/07/24 06:00 06/07/24 06:00 06/07/24 06:00 06/07/24 06:00 Constitutional: Constitutional: no acute distress Routine HEENT Exam: Head: Present atraumatic and normocephalic Routine Respiratory Exam: Respiratory: Present CTA bilaterally Routine Cardiovascular Exam: Cardiovascular: Present RRR; Absent murmur Routine Abdominal Exam: Abdominal: Present soft Fundus: Present firm and other (palpable uterine fibroid on patient's R that is mildly tender to palpation) Comments: no RUQ tenderness. Routine Extremities Exam: Comments: trace to 1+ pedal and lower extremity edema OB - PN: Obj Data Labs Labs: Laboratory Results - last 24 hr 06/06/24 06/06/24 06/06/24 14:05 14:30 20:21 WBC 5.54 6.89 RBC 3.22 L 3.18 L Hgb 10.4 L 10.2 L Hct 31.2 L 30.9 L MCV 97 97 MCH 32 32 MCHC 33 33 RDW Coeff of Tracey 13.1 Plt Count 195 219 Neut % (Auto) 62.4 Lymph % (Auto) 26.9 [place] % (Auto) 6.7 Eos % (Auto) 3.1 Baso % (Auto) 0.4 Neut # (Auto) 3.46 Lymph # (Auto) 1.49 [place] # (Auto) 0.40 Eos # (Auto) 0.17 Baso # (Auto) 0.02 Abs Immat Gran (auto) 0.03 Imm/Tot Granulo (auto) 0.5 Sodium 137 Potassium 4.3 Chloride 105 Carbon Dioxide 24 Anion Gap 8 BUN 14 15 Creatinine 0.8 0.8 Estimated Creat Clear 101.84 Estimated GFR 100 100 Glucose 77 Calcium 9.6 Magnesium 2.3 4.3 H* Total Bilirubin 0.5 Direct Bilirubin 0.3 AST 74 H 61 H ALT 125 H 109 H Alkaline Phosphatase 74 Total Protein 7.3 Albumin 4.1 Urine Color Yellow Urine Appearance Clear Urine pH 6.5 Ur Specific [place] 1.010 Urine Protein Negative Urine Glucose (UA) Negative Urine Ketones Negative Urine Blood 2+ A Urine Nitrite Negative Urine Bilirubin Negative Urine Urobilinogen 0.2 Ur Leukocyte Esterase 1+ A Urine RBC 2-5 A Urine WBC 5-10 A Ur Squamous Epith Cells Few Urine Bacteria Few A 06/07/24 02:25 WBC 6.07 RBC 3.08 L Hgb 9.9 L Hct 29.4 L MCV 96 MCH 32 MCHC 34 RDW Coeff of Tracey Plt Count 206 Neut % (Auto) Lymph % (Auto) [place] % (Auto) Eos % (Auto) Baso % (Auto) Neut # (Auto) Lymph # (Auto) [place] # (Auto) Eos # (Auto) Baso # (Auto) Abs Immat Gran (auto) Imm/Tot Granulo (auto) Sodium Potassium Chloride Carbon Dioxide Anion Gap BUN 14 Creatinine 0.7 Estimated Creat Clear 116.39 Estimated GFR 118 Glucose Calcium Magnesium 4.6 H* Total Bilirubin Direct Bilirubin AST 51 H ALT 96 H Alkaline Phosphatase Total Protein Albumin Urine Color Urine Appearance Urine pH Ur Specific [place] Urine Protein Urine Glucose (UA) Urine Ketones Urine Blood Urine Nitrite Urine Bilirubin Urine Urobilinogen Ur Leukocyte Esterase Urine RBC Urine WBC Ur Squamous Epith Cells Urine Bacteria OB - PN: A/P Delivery Assessment and Plan (1) Pre-eclampsia: Status: Acute (2) Pre-eclampsia, severe, delivered: Status: Acute Plan Continue magnesium infusion x24 hours. Labs have been improving since admission - plan to recheck on 06/08/24 in AM or sooner if warranted. Continue Tylenol and ibuprofen for pain management. Encouraged patient to monitor for worsening headache or other preE symptoms. Majority of blood pressures have been well controlled since arrival; low threshold to start antihypertensives if BPs consistently approach or surpass > 140/90 mmHg. Anticipate at least one additional midnight inpatient. Plan day: 6
[2024-06-07] MEDS: DOCUSATE SODIUM 100 MG CAPSULE PO (08:37)
[2024-06-07] MEDS: SENNOSIDES/DOCUSATE TABLET 1 TAB PO ×2 (08:38→20:07)
[2024-06-07] MEDS: LACTATED RINGERS 1000 ML 1,000 ML 75 ML IV (10:07)
[2024-06-07] MEDS: polyethylene glycoL 3350 17 GM PACK PO (10:16)
[2024-06-07] MEDS: OXYCODONE 5 MG TABLET PO (16:37)
[2024-06-07] MEDS: METOCLOPRAMIDE HCL 5 MG/ML INJ 10 MG IVP (16:38)
[2024-06-07] MEDS: ASPIRIN/ACETAMINOPHEN/CAFFEINE 1 TABLET 2 TAB PO (19:50)
[2024-06-07] MEDS: hydrOXYzine pamoate 25 MG CAPSULE 50 MG PO (20:07)
[2024-06-08 03:51] VITALS: BP 113/77; PULSE 63; RESP 14; TEMP 36.6; O2SAT 99
[2024-06-08 05:28] LABS: Basophils Absolute Auto 0.03 K/uL (0.00-0.30); Basophils Percent Auto 0.5 % (0.0-3.0); Eosinophils Absolute Auto 0.25 K/uL (0.00-0.50); Eosinophils Percent Auto 4.2 % (0.0-7.0); Immature Granulocytes Abs Auto 0.03 K/uL (0.00-0.30); Immature Granulocytes Pct Auto 0.5 %; Lymphocytes Absolute Auto 2.01 K/uL (0.90-2.90); Lymphocytes Percent Auto 34.1 % (20-44); Mean Corpuscular HGB Conc 33 gm/dL (32-36); Mean Corpuscular Hemoglobin 32 pg (26-34); Mean Corpuscular Volume 97 fL (80-100); Monocytes Percent Auto 7.6 % (0.0-11.0); Neutrophils Absolute Auto 3.13 K/uL (1.7-7.0); Neutrophils Percent Auto 53.1 % (42.0-72.0); Platelet Count* 254 K/uL (140-440); RDW Coefficient of Variation % 12.9 % (11.5-15.5)
[2024-06-08 05:37] LABS: Slide Review Reflex No
[2024-06-08 05:45] LABS: Creatinine* 0.9 mg/dL (0.5-1.5); Est. Creatinine Clearance* 90.53; Estimated Glomerular Filt Rate 87 ml/min
[2024-06-08 05:46] LABS: Alanine Aminotransferase* 83 U/L (4-35); Aspartate Amino Transferase* 43 U/L (12-35)
[2024-06-08] MEDS: IBUPROFEN 600 MG TABLET PO (06:01)
--- NOTE | 2024-06-08 07:44 | PM.OBPNVD1 ---
OB - PN:Subj Subjective Time Seen by Provider: 07:44 Date Seen: 06/08/24 Interval history: Patient is PPD 7, readmitted on 06/06/24 for pre-eclampsia with severe features with elevated LFT's and headache. Received 24 hours Magnesium and this was discontinued around 5:30pm last night Pt reports feeling much better this morning. Headache resolved. BP's okay without meds. lochia decreasing. . pt without concerns. Patient comments OB post-: no complaints [place] status: OB - PN: Obj Exam Physical Exam: Vital signs: Temp Pulse Resp BP Pulse Ox O2 Del Method 97.8 F 63 14 113/77 99 Room Air 06/08/24 03:51 06/08/24 03:51 06/08/24 03:51 06/08/24 03:51 06/08/24 03:51 06/08/24 03:51 Constitutional: Constitutional: no acute distress and cooperative Routine Neurological Exam: Neurological: Present alert and oriented X3 Routine Psychiatric Exam: Psychiatric: Present normal affect, cooperative, good insight and good judgment OB - PN: Obj Data Labs Labs: Laboratory Results - last 24 hr 06/08/24 05:10 WBC 5.90 RBC 3.40 L Hgb 11.0 L Hct 33.0 MCV 97 MCH 32 MCHC 33 RDW Coeff of Tracey 12.9 Plt Count 254 Neut % (Auto) 53.1 Lymph % (Auto) 34.1 [place] % (Auto) 7.6 Eos % (Auto) 4.2 Baso % (Auto) 0.5 Neut # (Auto) 3.13 Lymph # (Auto) 2.01 [place] # (Auto) 0.40 Eos # (Auto) 0.25 Baso # (Auto) 0.03 Abs Immat Gran (auto) 0.03 Imm/Tot Granulo (auto) 0.5 Creatinine 0.9 Estimated Creat Clear 90.53 Estimated GFR 87 AST 43 H ALT 83 H OB - PN: A/P Delivery Assessment and Plan (1) Pre-eclampsia: Status: Acute (2) Pre-eclampsia, severe, delivered: Status: Acute Assessment and Plan: Patient is PPD 7, readmitted on 06/06/24 for pre-eclampsia with severe features. Headache resolved. LFT's improving (54 down to 43, 96 down to 83) -plan monitor 12-24hours off magnesium, aim for closer to 24 hours. IF continues to do well, plan d/c later today. -discussed plan with pt, S.O and RN. Plan close followup in clinic early next week with Dr Duong
[2024-06-08 08:01] VITALS: BP 121/82; PULSE 65; RESP 16; TEMP 36.5; O2SAT 100
[2024-06-08] MEDS: DOCUSATE SODIUM 100 MG CAPSULE PO (08:12)
[2024-06-08] MEDS: SENNOSIDES/DOCUSATE TABLET 1 TAB PO (08:12)
[2024-06-08 12:32] VITALS: BP 133/79; PULSE 70; RESP 16; TEMP 36.9; O2SAT 98
[2024-06-08] MEDS: ACETAMINOPHEN 500 MG TABLET 1000 MG PO (13:44)
[2024-06-08 16:04] VITALS: BP 119/78; PULSE 74; RESP 16; TEMP 37.2; O2SAT 98
--- NOTE | 2024-06-08 16:41 | W.PM.OB.MED ---
DS: Providers Provider Time Seen by Provider: 16:41 Date Seen: 06/08/24 Date of admission: 06/07/24 08:03 Primary care physician: Mikayla Duong MD Admitting Clinician: Clementine Cade MD Attending Physician on discharge: Татьяна Quiroz DO Date of Discharge: 06/08/24 DS: Diagnosis Discharge Diagnosis (1) Pre-eclampsia: Status: Acute (2) Pre-eclampsia, severe, delivered: Status: Acute Problem details: Readmitted 06/06/24 for preeclampsia with severe features due to headache and elevated LFT's. Was placed on magnesium for 24 hours, discontinued last evening. Headache resolved. LFT's decreasing. BP's today mostly 110-120's/70's, highest today 133/79. Has not required meds for bp's. Discharge Plan Discharge Disposition: Home, Self-Care Date of Admission: 06/07/24 08:03 Primary Care Provider: Jarvis Saunders Condition: Stable Anticipated Discharge Date/Time: 06/08/24 16:47 Discharge Medications: Discontinued polyethylene glycol 3350 [Miralax] 17 gram Powder In Packet 17 g PO DAILY Qty: 30 0RF omeprazole 20 mg capsule,delayed release(DR/EC) 20 mg PO DAILY Qty: 30 2RF sennosides [Senna Lax] 8.6 mg Tablet 8.6 mg PO BID Qty: 60 0RF Discharge Orders: Discharge Order (Routine); Ordered 06/08/24 Ordered By: Татьяна Quiroz Patient Education: Preeclampsia and Eclampsia After Delivery (GEN) Discharge Diet: Regular Follow Up Appointments: Mikayla Duong MD [Staff Physician] - (Hospital followup appointment with Dr Duong 06/14/24 at 12:40pm [address] Duong) Jarvis Saunders MD [Primary Care Provider] - Forms: [employer] Info Instructions Hospital Course Course Hospital Course: Readmitted 06/06/24 for preeclampsia with severe features due to headache and elevated LFT's. Was placed on magnesium for 24 hours, discontinued last evening. Headache resolved. LFT's decreasing. BP's today mostly 110-120's/70's, highest today 133/79. Has not required meds for bp's. Labs Labs: Laboratory Tests 06/08/24 06/07/24 06/06/24 Range/Units 05:10 02:25 20:21 WBC 5.90 6.07 6.89 (4.50-11.00) K/uL RBC 3.40 L 3.08 L 3.18 L (4.00-5.20) m/uL Hgb 11.0 L 9.9 L 10.2 L (12.0-16.0) gm/dL Hct 33.0 29.4 L 30.9 L (33.0-51.0) % MCV 97 96 97 (80-100) fL MCH 32 32 32 (26-34) pg MCHC 33 34 33 (32-36) gm/dL RDW Coeff of Tracey 12.9 (11.5-15.5) % Plt Count 254 206 219 (140-440) K/uL Neut % (Auto) 53.1 (42.0-72.0) % Lymph % (Auto) 34.1 (20-44) % [place] % (Auto) 7.6 (0.0-11.0) % Eos % (Auto) 4.2 (0.0-7.0) % Baso % (Auto) 0.5 (0.0-3.0) % Neut # (Auto) 3.13 (1.7-7.0) K/uL Lymph # (Auto) 2.01 (0.90-2.90) K/uL [place] # (Auto) 0.40 (0.00-0.90) K/UL Eos # (Auto) 0.25 (0.00-0.50) K/uL Baso # (Auto) 0.03 (0.00-0.30) K/uL Abs Immat Gran (auto) 0.03 (0.00-0.30) K/uL Imm/Tot Granulo (auto) 0.5 % Sodium (135-149) mmol/L Potassium (3.6-5.1) mmol/L Chloride (96-114) mmol/L Carbon Dioxide (20-32) mmol/L Anion Gap (7-15) mEq/L BUN 14 15 (5-24) mg/dL Creatinine 0.9 0.7 0.8 (0.5-1.5) mg/dL Estimated Creat Clear 90.53 116.39 101.84 Estimated GFR 87 118 100 ml/min Glucose (60-115) mg/dL Calcium (8.4-10.6) mg/dL Magnesium 4.6 H* 4.3 H* (1.5-2.6) mg/dL Total Bilirubin (0.1-1.5) mg/dL Direct Bilirubin (0.0-0.5) mg/dL AST 43 H 51 H 61 H (12-35) U/L ALT 83 H 96 H 109 H (4-35) U/L Alkaline Phosphatase (40-150) U/L Total Protein (6.0-8.3) g/dL Albumin (3.3-5.0) g/dL Urine Color (Yellow) Urine Appearance (Clear) Urine pH (5.0-8.5) Ur Specific [place] (1.000-1.030) Urine Protein (Negative) Urine Glucose (UA) (Negative) Urine Ketones (Negative) Urine Blood (Negative) Urine Nitrite (Negative) Urine Bilirubin (Negative) Urine Urobilinogen (0.2-1.0) Ur Leukocyte Esterase (Negative) Urine RBC (0-2) Urine WBC (0-5) Ur Squamous Epith Cells (None-Few) Urine Bacteria (None) 06/06/24 06/06/24 Range/Units 14:30 14:05 WBC 5.54 (4.50-11.00) K/uL RBC 3.22 L (4.00-5.20) m/uL Hgb 10.4 L (12.0-16.0) gm/dL Hct 31.2 L (33.0-51.0) % MCV 97 (80-100) fL MCH 32 (26-34) pg MCHC 33 (32-36) gm/dL RDW Coeff of Tracey 13.1 (11.5-15.5) % Plt Count 195 (140-440) K/uL Neut % (Auto) 62.4 (42.0-72.0) % Lymph % (Auto) 26.9 (20-44) % [place] % (Auto) 6.7 (0.0-11.0) % Eos % (Auto) 3.1 (0.0-7.0) % Baso % (Auto) 0.4 (0.0-3.0) % Neut # (Auto) 3.46 (1.7-7.0) K/uL Lymph # (Auto) 1.49 (0.90-2.90) K/uL [place] # (Auto) 0.40 (0.00-0.90) K/UL Eos # (Auto) 0.17 (0.00-0.50) K/uL Baso # (Auto) 0.02 (0.00-0.30) K/uL Abs Immat Gran (auto) 0.03 (0.00-0.30) K/uL Imm/Tot Granulo (auto) 0.5 % Sodium 137 (135-149) mmol/L Potassium 4.3 (3.6-5.1) mmol/L Chloride 105 (96-114) mmol/L Carbon Dioxide 24 (20-32) mmol/L Anion Gap 8 (7-15) mEq/L BUN 14 (5-24) mg/dL Creatinine 0.8 (0.5-1.5) mg/dL Estimated Creat Clear Estimated GFR 100 ml/min Glucose 77 (60-115) mg/dL Calcium 9.6 (8.4-10.6) mg/dL Magnesium 2.3 (1.5-2.6) mg/dL Total Bilirubin 0.5 (0.1-1.5) mg/dL Direct Bilirubin 0.3 (0.0-0.5) mg/dL AST 74 H (12-35) U/L ALT 125 H (4-35) U/L Alkaline Phosphatase 74 (40-150) U/L Total Protein 7.3 (6.0-8.3) g/dL Albumin 4.1 (3.3-5.0) g/dL Urine Color Yellow (Yellow) Urine Appearance Clear (Clear) Urine pH 6.5 (5.0-8.5) Ur Specific [place] 1.010 (1.000-1.030) Urine Protein Negative (Negative) Urine Glucose (UA) Negative (Negative) Urine Ketones Negative (Negative) Urine Blood 2+ A (Negative) Urine Nitrite Negative (Negative) Urine Bilirubin Negative (Negative) Urine Urobilinogen 0.2 (0.2-1.0) Ur Leukocyte Esterase 1+ A (Negative) Urine RBC 2-5 A (0-2) Urine WBC 5-10 A (0-5) Ur Squamous Epith Cells Few (None-Few) Urine Bacteria Few A (None) OB Problem List Additional Plan (1) Pre-eclampsia: Status: Acute (2) Pre-eclampsia, severe, delivered: Problem details: Readmitted 06/06/24 for preeclampsia with severe features due to headache and elevated LFT's. Was placed on magnesium for 24 hours, discontinued last evening. Headache resolved. LFT's decreasing. BP's today mostly 110-120's/70's, highest today 133/79. Has not required meds for bp's. Status: Acute DS: Summary Vital Signs Vital Signs: Vital Signs Temp Pulse Resp BP BP Pulse Ox O2 Del Method 06/08/24 16:04 98.9 F 74 16 119/78 98 Room Air 06/08/24 12:32 98.4 F 70 16 133/79 98 Room Air 06/08/24 08:01 97.7 F 65 16 121/82 100 Room Air 06/08/24 03:51 97.8 F 63 14 113/77 99 Room Air 06/07/24 23:28 58 L 18 137/75 99 Room Air 06/07/24 19:52 71 20 138/85 100 Room Air Discharge Examination General appearance: alert and normal affect
== END 2024-06-08 18:00 | disposition home or self-care (01) | DRG 561 ==
LOC: ED 16:02 → OB 16:17
PROVIDERS: Admitting Provider Family Medicine; Emergency Provider Student in an Organized Health Care Education/Training Program; PCP Family Medicine; Visit Provider Family Medicine
DX: O14.15 Severe pre-eclampsia, complicating the puerperium (principal)
CPT/HCPCS: 36415; 80048; 80076; 81001; 81003; 82565; 83735; 84450; 84460; 84520; 85025; 85027; 87086; 99199; 99284; 99285; A9270; G0378; J2765; J3475; J7120